=== PATIENT | male | born 1950 | race Caucasian/White ===

== ENCOUNTER → 2016-07-13 | Outpatient (CLI) | payer MEDICARE ==
[~2016-07-13] MED LIST: AMIO200T33; DIGO0.2570; DILT180C53; RANI-226; WARF5TAB71
[2016-07-13 10:09] LABS: Basophils # (auto) 0 uL; Basophils % (auto) 0.6 % (0.0-2.0); DEFINITIVE VIEW TRANSMISSION; Eosinophils # (auto) 0.3 uL; Eosinophils % (auto) 3.7 % (0.0-7.0); Hematocrit 45.3 % (41.0-53.0); Hemoglobin 14.4 g/dL (13.5-17.5); Lymphocytes # (auto) 2.4 uL; Mean Corpuscular Hemoglobin 25.2 pg (28.0-32.0); Mean Corpuscular Hgb Conc. 31.8 g/dL (32.0-36.0); Mean Corpuscular Volume 79.4 fL (80.0-100.0); Mean Platelet Volume 7.9 fL (7.4-10.4); Monocytes # (auto) 0.7 uL; Monocytes % (auto) 9.3 % (0.0-12.0); Neutrophils # (auto) 4.4 uL; Neutrophils % (auto) 55.4 % (37.0-80.0); Platelet Count (auto) 314 10^3/uL (140-450); Red Cell Distribution Width 16.6 % (11.6-16.0); White Blood Cell 7.9 10^3/uL (4.4-10.8)
[2016-07-13 10:19] LABS: Urine Bilirubin Negative (Negative); Urine Color Yellow (Yellow); Urine Glucose Normal (Normal); Urine Ketone Negative (Negative); Urine Mucus MANY (None Seen); Urine Nitrite Negative (Negative); Urine RBC 26 /hpf (0 - 3); Urine Urobilinogen Normal (Negative); Urine WBC Clumps PRESENT /hpf (None Seen)
[2016-07-13 10:22] LABS: Urine Blood 2+ /uL (Negative)
[2016-07-13 10:33] LABS: Albumin 3.7 g/dL (3.4-5.0); BUN/Creatinine Ratio 12.1; Bilirubin, Total 0.4 mg/dL (0.2-1.0); Calcium 8.9 mg/dL (8.5-10.1); Potassium 3.9 mmol/L (3.5-5.1); Total Protein 8.6 g/dL (6.4-8.2); Uric Acid 5.2 mg/dL (3.5-7.2)
== END | disposition home or self-care (01) ==
LOC: LAB 09:15
PROVIDERS: ATTEND Student in an Organized Health Care Education/Training Program
DX: I10 Essential (primary) hypertension (principal); N18.3 Chronic kidney disease, stage 3 (moderate); I50.22 Chronic systolic (congestive) heart failure; F32.5 Major depressive disorder, single episode, in full remission
CPT/HCPCS: 36415; 80053; 80061; 81001; 82306; 83036; 84153; 84439; 84443; 84550; 85025

== ENCOUNTER 2016-11-02 04:19 | Emergency (ER) | payer MEDICARE ==
[~2016-11-02] VITALS: Ht 167.6 cm; Wt 77.1 kg
[~2016-11-02 04:19] MED LIST changes: -AMIO200T33; +AMIO200T33 PO; -DIGO0.2570; +DIGO0.2570 PO; -RANI-226; +RANI-226 PO; -WARF5TAB71; +WARF5TAB71 PO
[2016-11-02 07:33] VITALS: BP 180/93
[2016-11-02] MEDS ORDERED: KETOROLAC TROMETH 60MG/2ML VIAL IM ONE (13:02)
[2016-11-02] MEDS ORDERED: LORazepam 0.5 MG TAB ONE (13:02)
[2016-11-02] MEDS ORDERED: WARF2.5T39 PO (17:40)
[2016-11-03] MEDS ORDERED: DILT180C68 PO (11:02)
== END 2016-11-02 08:09 | disposition home or self-care (01) ==
LOC: ER 04:20
DX: S39.012A Strain of muscle, fascia and tendon of lower back, initial encounter (principal); M54.9 Dorsalgia, unspecified; G89.29 Other chronic pain; I42.9 Cardiomyopathy, unspecified; J44.9 Chronic obstructive pulmonary disease, unspecified; X58.XXXA Exposure to other specified factors, initial encounter; Y93.89 Activity, other specified; Y99.8 Other external cause status; Y92.89 Other specified places as the place of occurrence of the external cause; Z88.8 Allergy status to other drugs, medicaments and biological substances
CPT/HCPCS: J1885

== ENCOUNTER → 2017-02-25 | Outpatient (CLI) | payer MEDICARE ==
[~2017-02-25] MED LIST changes: -AMIO200T33 PO; -DILT180C53; +DILT180C68 PO; +LEVO-28 PO; +TAMS0.4C36 PO
[2017-02-25 16:10] LABS: Urine Bilirubin Negative (Negative); Urine Blood 3+ /uL (Negative); Urine Color Yellow (Yellow); Urine Glucose Normal (Normal); Urine Ketone Negative (Negative); Urine Mucus FEW (None Seen); Urine Nitrite Negative (Negative); Urine RBC 216 /hpf (0 - 3); Urine Squamous Epithelial Cell FEW /hpf (<5); Urine Urobilinogen Normal (Negative); Urine WBC Clumps PRESENT /hpf (None Seen)
== END | disposition home or self-care (01) ==
LOC: LAB 15:25
PROVIDERS: ATTEND Urology
DX: N39.0 Urinary tract infection, site not specified (principal)
CPT/HCPCS: 81001; 87086; 87088; 87186

== ENCOUNTER → 2017-04-09 | Outpatient (CLI) | payer MEDICARE | END | disposition home or self-care (01) | LOC: LAB 10:04 | PROVIDERS: ATTEND Urology | DX: N39.0 Urinary tract infection, site not specified (principal) | CPT/HCPCS: 87086 ==

== ENCOUNTER → 2017-06-22 | Outpatient (CLI) | payer MEDICARE | END | disposition home or self-care (01) | LOC: XYW 10:31 | PROVIDERS: ATTEND Internal Medicine Cardiovascular Disease | DX: I08.3 Combined rheumatic disorders of mitral, aortic and tricuspid valves (principal); I27.20 Pulmonary hypertension, unspecified; I48.91 Unspecified atrial fibrillation | CPT/HCPCS: 93306 ==

== ENCOUNTER 2017-07-01 14:58 | Inpatient (IN) | payer MEDICARE ==
[~2017-07-01] VITALS: Ht 167.6 cm; Wt 70.4 kg
[2017-07-01 15:15] VITALS: BP 133/66
[2017-07-01 16:00] VITALS: BP 133/66
[2017-07-01] MEDS ORDERED: AMIODARONE HCL 150 MG in D5W 5% 100 ML IV ONE (16:30)
[2017-07-01] MEDS ORDERED: NITROGLYCERIN 0.4 MG SL TAB SL PRN (16:30)
[2017-07-01] MEDS ORDERED: MORPHINE SULF INJ 2 MG/ML SYRINGE 1ML IV PRN (16:30)
[2017-07-01] MEDS ORDERED: AMIODARONE HCL 900 MG in DEXTROSE 500 ML IV SCH (16:32)
[2017-07-01] MEDS ORDERED: MORPHINE SULFATE 4 MG/ML SYR/VIAL IV PRN (16:45)
[2017-07-01 17:13] LABS: Basophils # (auto) 0 uL; Eosinophils # (auto) 0 uL; Eosinophils % (auto) 0.4 % (0.0-7.0); Hemoglobin 13.2 g/dL (13.5-17.5); Monocytes # (auto) 0.6 uL; Neutrophils # (auto) 3.8 uL
[2017-07-01 17:14] LABS: Basophils % (auto) 0.6 % (0.0-2.0); Lymphocytes # (auto) 2.2 uL; Lymphocytes % (auto) 32.1 % (10.0-50.0); Mean Corpuscular Hemoglobin 25.5 pg (28.0-32.0); Mean Corpuscular Hgb Conc. 32.3 g/dL (32.0-36.0); Mean Corpuscular Volume 78.8 fL (80.0-100.0); Monocytes % (auto) 9.7 % (0.0-12.0); Neutrophils % (auto) 57.2 % (37.0-80.0); Nucleated Red Blood Cells % 0.8 %; Platelet Count (auto) 242 10^3/uL (140-450); Red Cell Distribution Width 17.3 % (11.8-14.3); White Blood Cell 6.7 10^3/uL (4.4-10.8)
[2017-07-01 17:17] LABS: Alanine Aminotransferase 26 U/L (16-61); Albumin 3.5 g/dL (3.4-5.0); Anion Gap 8 (5-15); BUN/Creatinine Ratio 16.9; Blood Urea Nitrogen 22 mg/dL (7-18); Calcium 8.7 mg/dL (8.5-10.1); Carbon Dioxide 23 mmol/L (21-32); Chloride 107 mmol/L (98-107); GFR African American 71 mL/min; GFR Non-African American 58 mL/min; Glucose 94 mg/dL (74-106); Potassium 4.3 mmol/L (3.5-5.1); Sodium 138 mmol/L (136-145)
[2017-07-01 17:22] LABS: Alkaline Phosphatase 97 U/L (45-117); Aspartate Aminotransferase 17 U/L (15-37); Bilirubin, Total 0.9 mg/dL (0.2-1.0); Total Protein 8.1 g/dL (6.4-8.2)
[2017-07-01 17:24] LABS: INR 2.38 (0.9-1.15); Partial Thromboplastin Time 35.9 sec (22.64-33.71); Prothrombin Time 26.2 sec (9.37-12.3)
[2017-07-01] MEDS: TAMSULOSIN HYDROCHLORIDE 0.4 MG CAP PO SCH (18:10)
[2017-07-01] MEDS ORDERED: DIGOXIN (250MCG/ML) 2 ML AMPULE IV SCH (19:00)
[2017-07-01] MEDS ORDERED: LORazepam 0.5 MG TAB PO ONE (19:15)
[2017-07-01] MEDS ORDERED: WARFARIN SODIUM 2 MG TAB PO ONE (19:30)
[2017-07-01] MEDS ORDERED: CAR3125T PO (19:52)
[2017-07-01 20:00] VITALS: BP 105/61
[2017-07-01] MEDS: DIGOXIN (250MCG/ML) 2 ML AMPULE IV SCH (20:08)
[2017-07-01] MEDS: FAMOTIDINE 20 MG TAB PO SCH (21:58)
[2017-07-02] MEDS: AMIODARONE HCL 900 MG in DEXTROSE 500 ML IV SCH ×2 (00:10→08:50)
[2017-07-02 00:16] VITALS: BP 98/42
[2017-07-02] MEDS: DIGOXIN (250MCG/ML) 2 ML AMPULE IV SCH ×2 (01:14→06:57)
[2017-07-02 02:58] LABS: Urine Bacteria NONE SEEN /hpf (None Seen); Urine Blood 1+ /uL (Negative); Urine Hyaline Cast FEW /lpf (0 - 2); Urine Mucus FEW (None Seen); Urine Specific Gravity 1.023 (1.001-1.035); Urine WBC 16 /hpf (0 - 3)
[2017-07-02 04:27] VITALS: BP 117/83
[2017-07-02 05:57] LABS: INR 2.6 (0.9-1.15); Partial Thromboplastin Time 37.9 sec (22.64-33.71); Prothrombin Time 28.6 sec (9.37-12.3)
[2017-07-02 08:00] VITALS: BP 116/74
[2017-07-02] MEDS ORDERED: METOPROLOL SUCCINATE XL 50 MG TAB PO SCH (09:00)
[2017-07-02] MEDS ORDERED: DIGOXIN (250MCG/ML) 2 ML AMPULE IV ONE (09:00)
[2017-07-02] MEDS: FAMOTIDINE 20 MG TAB PO SCH ×2 (09:03→22:04)
[2017-07-02] MEDS ORDERED: FUROSEMIDE 40 MG/4 ML VIAL IV ONE (10:45)
[2017-07-02 11:50] VITALS: BP 124/77
[2017-07-02] MEDS ORDERED: POTASSIUM CHL 20 Meq TABLET PO ONE (12:00)
[2017-07-02 13:00] VITALS: BP 117/90
[2017-07-02] MEDS ORDERED: WARFARIN SODIUM 2.5 MG TAB PO ONE (17:00)
[2017-07-02] MEDS: TAMSULOSIN HYDROCHLORIDE 0.4 MG CAP PO SCH (18:12)
[2017-07-02] MEDS: METOPROLOL SUCCINATE XL 50 MG TAB PO SCH ×2 (20:49→22:05)
[2017-07-02 22:03] VITALS: BP 113/62
[2017-07-03 05:16] VITALS: BP 127/73
[2017-07-03 06:34] LABS: Albumin 3.1 g/dL (3.4-5.0); BUN/Creatinine Ratio 18.2; Calcium 8.5 mg/dL (8.5-10.1); Total Protein 7.6 g/dL (6.4-8.2)
[2017-07-03 06:36] LABS: INR 3.02 (0.9-1.15); Partial Thromboplastin Time 39.4 sec (22.64-33.71); Prothrombin Time 33.3 sec (9.37-12.3)
[2017-07-03 08:30] VITALS: BP 120/77
[2017-07-03] MEDS: FAMOTIDINE 20 MG TAB PO SCH (08:58)
[2017-07-03] MEDS: METOPROLOL SUCCINATE XL 50 MG TAB PO SCH (08:58)
[2017-07-03] MEDS: DIGOXIN 0.125 MG TAB PO SCH ×2 (08:59→10:00)
[2017-07-03] MEDS ORDERED: METOPROLOL TARTRATE 25 MG TAB PO ONE (09:15)
[2017-07-03 12:24] VITALS: BP 105/75
[2017-07-03] MEDS ORDERED: TAM04C PO (13:53)
[2017-07-03] MEDS ORDERED: WARPRX PO (13:53)
[2017-07-03] MEDS ORDERED: DIGO0.124 PO (13:53)
[2017-07-03] MEDS ORDERED: METO50TA7 PO (13:53)
[2017-07-03 15:07] VITALS: BP 118/78
[2017-07-03] MEDS ORDERED: METOPROLOL SUCCINATE XL 50 MG TAB PO SCH (20:00)
== END 2017-07-03 16:00 | disposition home or self-care (01) | DRG 308 ==
LOC: ICU CENTRL 14:58 → DOU IN ICU 15:34 → CENTRAL 07-02 12:15 → TELE-CENTR 07-02 13:24
PROVIDERS: ADMIT Family Medicine; ATTEND Internal Medicine
DX: I48.2 Chronic atrial fibrillation (principal); I50.31 Acute diastolic (congestive) heart failure; D68.69 Other thrombophilia; Z79.01 Long term (current) use of anticoagulants; I11.0 Hypertensive heart disease with heart failure; N40.0 Benign prostatic hyperplasia without lower urinary tract symptoms; Z86.711 Personal history of pulmonary embolism; Z86.718 Personal history of other venous thrombosis and embolism
CPT/HCPCS: 36415; 71010; 80053; 81001; 83880; 84484; 85025; 85610; 85730; 87081; J7060

== ENCOUNTER 2017-07-24 09:28 | Inpatient (IN) | payer MEDICARE ==
[~2017-07-24] VITALS: Ht 167.6 cm; Wt 79.8 kg
[~2017-07-24 09:28] MED LIST changes: +CAR3125T PO; +DIGO0.124 PO; -DIGO0.2570 PO; -DILT180C68 PO; -LEVO-28 PO; +METO50TA7 PO; +TAM04C PO; -TAMS0.4C36 PO; +WARPRX PO
[2017-07-24 10:16] LABS: Basophils # (auto) 0.1 uL; Basophils % (auto) 0.9 % (0.0-2.0); Eosinophils # (auto) 0.2 uL; Hemoglobin 12.7 g/dL (13.5-17.5); Mean Corpuscular Hgb Conc. 31.8 g/dL (32.0-36.0); Monocytes # (auto) 0.4 uL
[2017-07-24 10:18] LABS: Eosinophils % (auto) 1.8 % (0.0-7.0); Hematocrit 39.8 % (41.0-53.0); Lymphocytes # (auto) 2.1 uL; Lymphocytes % (auto) 25.2 % (10.0-50.0); Mean Corpuscular Volume 78.6 fL (80.0-100.0); Monocytes % (auto) 4.5 % (0.0-12.0); Neutrophils # (auto) 5.5 uL; Neutrophils % (auto) 67.6 % (37.0-80.0); Platelet Count (auto) 267 10^3/uL (140-450); Red Blood Cells 5.07 10^6/uL (4.5-5.90); Red Cell Distribution Width 18.5 % (11.8-14.3); White Blood Cell 8.1 10^3/uL (4.4-10.8)
[2017-07-24 10:39] LABS: Lactic Acid w/Reflex 2.2 mmol/L (0.4-2.0)
[2017-07-24 10:42] LABS: Alanine Aminotransferase 24 U/L (16-61); Albumin 3.6 g/dL (3.4-5.0); Alkaline Phosphatase 85 U/L (45-117); Anion Gap 11 (5-15); Aspartate Aminotransferase 16 U/L (15-37); BUN/Creatinine Ratio 15.9; Bilirubin, Total 0.5 mg/dL (0.2-1.0); Blood Urea Nitrogen 23 mg/dL (7-18); Calcium 8.8 mg/dL (8.5-10.1); Carbon Dioxide 23 mmol/L (21-32); Chloride 107 mmol/L (98-107); GFR African American 62 mL/min; GFR Non-African American 51 mL/min; Glucose 137 mg/dL (74-106); Magnesium 2.3 mg/dL (1.6-2.6); Potassium 4.8 mmol/L (3.5-5.1); Sodium 141 mmol/L (136-145); Total Protein 7.9 g/dL (6.4-8.2)
[2017-07-24 11:02] LABS: INR 3.01 (0.9-1.15); Prothrombin Time 33.2 sec (9.37-12.3)
[2017-07-24] MEDS ORDERED: ACETAMINOPHEN 325 MG TAB PO PRN (14:30)
[2017-07-24] MEDS ORDERED: ONDANSETRON HCL 4 MG/2 ML VIAL IV PRN (14:30)
[2017-07-24] MEDS ORDERED: DIGOXIN 0.125 MG TAB PO ONE (14:30)
[2017-07-24] MEDS ORDERED: HYDROcodone-ACET 5/325MG TAB PO PRN (14:30)
[2017-07-24] MEDS ORDERED: cefTRIAXone 1GM/10ml IVPUSH 10 ML IV ONE (14:30)
[2017-07-24] MEDS ORDERED: TEMAZEPAM 15 MG CAP PO PRN (14:30)
[2017-07-24] MEDS ORDERED: NITROGLYCERIN 0.4 MG SL TAB SL PRN (14:30)
[2017-07-24] MEDS ORDERED: MORPHINE SULFATE 10 MG/ML INJ 1ML SDV IV PRN ×2 (14:30)
[2017-07-24] MEDS ORDERED: PHYTONADIONE (VIT K)10 MG/ML 1ML VIAL SUBCUT ONE (14:30)
[2017-07-24] MEDS ORDERED: DOCUSATE SOD 100 MG CAP PO PRN (14:30)
[2017-07-24] MEDS ORDERED: DEXTROSE (50%) 50ML SYRG IV PRN (14:45)
[2017-07-24] MEDS ORDERED: VANCOMYCIN PER PHARMACY 0 MG IV SCH (14:45)
[2017-07-24] MEDS: FAMOTIDINE 20 MG TAB PO SCH ×2 (15:30→22:00)
[2017-07-24] MEDS ORDERED: VANCOMYCIN 1,250 MG in D5W 5% 250 ML IV ONE (16:30)
[2017-07-24] MEDS: ACCU-CHEK COMFORT CURVE STRIP VI SCH ×2 (16:34→22:00)
[2017-07-24] MEDS: InsuLIN REG 1unit/0.01ml Soln (100units/ml) SC SCH ×2 (16:36→22:00)
[2017-07-24] MEDS ORDERED: CARV6.2551 PO (17:20)
[2017-07-24] MEDS ORDERED: HYDR-4683 PO (17:20)
[2017-07-24] MEDS: TAMSULOSIN HYDROCHLORIDE 0.4 MG CAP PO SCH (18:11)
[2017-07-24] MEDS: METOPROLOL SUCCINATE XL 50 MG TAB PO SCH (21:38)
[2017-07-24] MEDS: SODIUM CHLOR 0.9% PF (SALINE LOCK) 10ML VIAL IV SCH (21:38)
[2017-07-24] MEDS ORDERED: CARVEDILOL 3.125 MG TAB PO SCH (22:00)
[2017-07-25] MEDS: SODIUM CHLOR 0.9% PF (SALINE LOCK) 10ML VIAL IV SCH ×3 (05:02→22:03)
[2017-07-25] MEDS: SODIUM CHLORIDE 0.9% 1,000 ML IV SCH ×3 (05:43→22:02)
[2017-07-25] MEDS ORDERED: SODIUM CHLORIDE 0.9% 1,000 ML IV ONE (05:45)
[2017-07-25] MEDS: InsuLIN REG 1unit/0.01ml Soln (100units/ml) SC SCH ×4 (07:00→22:00)
[2017-07-25] MEDS: ACCU-CHEK COMFORT CURVE STRIP VI SCH ×4 (07:00→22:03)
[2017-07-25 07:34] LABS: Basophils # (auto) 0 uL; Eosinophils # (auto) 0.1 uL; Hemoglobin 9.3 g/dL (13.5-17.5); Mean Corpuscular Hemoglobin 25.6 pg (28.0-32.0); White Blood Cell 8.6 10^3/uL (4.4-10.8)
[2017-07-25 07:36] LABS: Basophils % (auto) 0.3 % (0.0-2.0); Eosinophils % (auto) 1.6 % (0.0-7.0); Hematocrit 28.4 % (41.0-53.0); Lymphocytes # (auto) 2.5 uL; Lymphocytes % (auto) 28.8 % (10.0-50.0); Mean Corpuscular Hgb Conc. 32.7 g/dL (32.0-36.0); Mean Corpuscular Volume 78.1 fL (80.0-100.0); Monocytes # (auto) 0.8 uL; Monocytes % (auto) 9.6 % (0.0-12.0); Neutrophils # (auto) 5.1 uL; Neutrophils % (auto) 59.7 % (37.0-80.0); Platelet Count (auto) 166 10^3/uL (140-450); Red Blood Cells 3.64 10^6/uL (4.5-5.90); Red Cell Distribution Width 18.3 % (11.8-14.3)
[2017-07-25 07:47] LABS: INR 1.27 (0.9-1.15); Prothrombin Time 13.9 sec (9.37-12.3)
[2017-07-25 07:57] LABS: Albumin 2.7 g/dL (3.4-5.0); Calcium 8.3 mg/dL (8.5-10.1); Potassium 3.9 mmol/L (3.5-5.1)
[2017-07-25 08:09] LABS: Bilirubin, Total 0.6 mg/dL (0.2-1.0); Total Protein 5.9 g/dL (6.4-8.2)
[2017-07-25] MEDS: cefTRIAXone 1GM/10ml IVPUSH 10 ML IV SCH (08:55)
[2017-07-25] MEDS: METOPROLOL SUCCINATE XL 50 MG TAB PO SCH ×2 (10:00→22:03)
[2017-07-25] MEDS: MULTIPLE VITAMIN TAB PO SCH (10:12)
[2017-07-25] MEDS: DIGOXIN 0.125 MG TAB PO SCH (10:12)
[2017-07-25] MEDS: FAMOTIDINE 20 MG TAB PO SCH ×2 (10:12→22:03)
[2017-07-25] MEDS: VANCOMYCIN 1GM/250ML 250 ML IV SCH (16:50)
[2017-07-25] MEDS: TAMSULOSIN HYDROCHLORIDE 0.4 MG CAP PO SCH (18:06)
[2017-07-25 18:15] LABS: Urine Bacteria None Seen /hpf (None Seen)
[2017-07-25 18:49] LABS: Urine WBC 12 /hpf (0 - 3)
[2017-07-25 21:29] VITALS: BP 113/56
[2017-07-26 05:10] VITALS: BP 100/68
[2017-07-26] MEDS: InsuLIN REG 1unit/0.01ml Soln (100units/ml) SC SCH ×2 (06:32→11:30)
[2017-07-26] MEDS: ACCU-CHEK COMFORT CURVE STRIP VI SCH ×2 (06:32→11:30)
[2017-07-26] MEDS: SODIUM CHLOR 0.9% PF (SALINE LOCK) 10ML VIAL IV SCH ×3 (06:32→21:44)
[2017-07-26] MEDS: SODIUM CHLORIDE 0.9% 1,000 ML IV SCH ×3 (06:32→23:18)
[2017-07-26 09:22] VITALS: BP 100/60
[2017-07-26] MEDS: cefTRIAXone 1GM/10ml IVPUSH 10 ML IV SCH (10:06)
[2017-07-26] MEDS: FAMOTIDINE 20 MG TAB PO SCH ×2 (10:07→21:44)
[2017-07-26] MEDS: METOPROLOL SUCCINATE XL 50 MG TAB PO SCH ×2 (10:07→21:45)
[2017-07-26] MEDS: DIGOXIN 0.125 MG TAB PO SCH (10:08)
[2017-07-26] MEDS: MULTIPLE VITAMIN TAB PO SCH (10:08)
[2017-07-26 12:30] VITALS: BP 115/75
[2017-07-26 16:41] VITALS: BP 98/79
[2017-07-26] MEDS: VANCOMYCIN 1GM/250ML 250 ML IV SCH (16:45)
[2017-07-26 18:00] VITALS: BP 114/78
[2017-07-26] MEDS: TAMSULOSIN HYDROCHLORIDE 0.4 MG CAP PO SCH (18:37)
[2017-07-26 22:44] VITALS: BP 114/78
[2017-07-27 05:23] VITALS: BP 94/55
[2017-07-27] MEDS: SODIUM CHLOR 0.9% PF (SALINE LOCK) 10ML VIAL IV SCH ×3 (05:46→22:05)
[2017-07-27] MEDS: SODIUM CHLORIDE 0.9% 1,000 ML IV SCH ×3 (06:37→21:45)
[2017-07-27 08:00] VITALS: BP 123/66
[2017-07-27 09:38] LABS: Basophils # (auto) 0 uL; Eosinophils # (auto) 0.3 uL; Eosinophils % (auto) 5.2 % (0.0-7.0); Hemoglobin 8.6 g/dL (13.5-17.5); Lymphocytes # (auto) 1.5 uL; Monocytes # (auto) 0.5 uL; Nucleated Red Blood Cells % 0.1 %; White Blood Cell 4.9 10^3/uL (4.4-10.8)
[2017-07-27 09:42] LABS: Basophils % (auto) 0.7 % (0.0-2.0); Hematocrit 26.5 % (41.0-53.0); Lymphocytes % (auto) 29.7 % (10.0-50.0); Mean Corpuscular Hemoglobin 25.9 pg (28.0-32.0); Mean Corpuscular Hgb Conc. 32.6 g/dL (32.0-36.0); Mean Corpuscular Volume 79.3 fL (80.0-100.0); Monocytes % (auto) 10.5 % (0.0-12.0); Neutrophils # (auto) 2.6 uL; Neutrophils % (auto) 53.9 % (37.0-80.0); Platelet Count (auto) 154 10^3/uL (140-450); Red Blood Cells 3.34 10^6/uL (4.5-5.90); Red Cell Distribution Width 18.5 % (11.8-14.3)
[2017-07-27 09:52] LABS: Albumin 2.7 g/dL (3.4-5.0); Calcium 8.6 mg/dL (8.5-10.1); Potassium 4.1 mmol/L (3.5-5.1)
[2017-07-27 09:55] LABS: Bilirubin, Total 0.6 mg/dL (0.2-1.0); Total Protein 6.1 g/dL (6.4-8.2)
[2017-07-27 09:59] VITALS: BP 123/66
[2017-07-27] MEDS: DIGOXIN 0.125 MG TAB PO SCH (11:25)
[2017-07-27] MEDS: METOPROLOL SUCCINATE XL 50 MG TAB PO SCH ×2 (11:25→22:06)
[2017-07-27] MEDS: cefTRIAXone 1GM/10ml IVPUSH 10 ML IV SCH (11:25)
[2017-07-27] MEDS: MULTIPLE VITAMIN TAB PO SCH (11:26)
[2017-07-27] MEDS: FAMOTIDINE 20 MG TAB PO SCH ×2 (11:26→22:05)
[2017-07-27] MEDS ORDERED: LIDOCAINE 2% JELLY 11ml (GLYDO) ONE (11:42)
[2017-07-27 12:22] VITALS: BP 121/70
[2017-07-27] MEDS: VANCOMYCIN 1GM/250ML 250 ML IV SCH (15:18)
[2017-07-27 17:17] VITALS: BP 108/73
[2017-07-27] MEDS: TAMSULOSIN HYDROCHLORIDE 0.4 MG CAP PO SCH (17:24)
[2017-07-27 22:42] VITALS: BP 90/66
[2017-07-28] MEDS: SODIUM CHLORIDE 0.9% 1,000 ML IV SCH ×3 (02:52→22:08)
[2017-07-28] MEDS ORDERED: VANCOMYCIN 1GM/250ML 250 ML IV SCH (04:00)
[2017-07-28 05:29] VITALS: BP 112/73
[2017-07-28] MEDS: SODIUM CHLOR 0.9% PF (SALINE LOCK) 10ML VIAL IV SCH ×3 (06:12→22:06)
[2017-07-28 08:00] VITALS: BP 120/77
[2017-07-28 08:34] LABS: Eosinophils # (auto) 0.3 uL; Eosinophils % (auto) 4.7 % (0.0-7.0); Hematocrit 27.6 % (41.0-53.0); Monocytes # (auto) 0.6 uL; Red Cell Distribution Width 18.6 % (11.8-14.3); White Blood Cell 6.5 10^3/uL (4.4-10.8)
[2017-07-28 08:37] LABS: Basophils # (auto) 0 uL; Basophils % (auto) 0.6 % (0.0-2.0); Lymphocytes # (auto) 1.9 uL; Lymphocytes % (auto) 28.9 % (10.0-50.0); Mean Corpuscular Hemoglobin 25.7 pg (28.0-32.0); Mean Corpuscular Hgb Conc. 32.6 g/dL (32.0-36.0); Mean Corpuscular Volume 79.1 fL (80.0-100.0); Monocytes % (auto) 9.7 % (0.0-12.0); Neutrophils # (auto) 3.6 uL; Neutrophils % (auto) 56.1 % (37.0-80.0); Platelet Count (auto) 182 10^3/uL (140-450); Red Blood Cells 3.49 10^6/uL (4.5-5.90)
[2017-07-28 08:47] LABS: BUN/Creatinine Ratio 13.7; Calcium 8.2 mg/dL (8.5-10.1); Potassium 4.4 mmol/L (3.5-5.1)
[2017-07-28 09:00] VITALS: BP 120/77
[2017-07-28] MEDS: MULTIPLE VITAMIN TAB PO SCH (10:46)
[2017-07-28] MEDS: METOPROLOL SUCCINATE XL 50 MG TAB PO SCH ×2 (10:47→22:07)
[2017-07-28] MEDS: cefTRIAXone 1GM/10ml IVPUSH 10 ML IV SCH (10:47)
[2017-07-28] MEDS: FAMOTIDINE 20 MG TAB PO SCH ×2 (10:47→22:07)
[2017-07-28] MEDS: DIGOXIN 0.125 MG TAB PO SCH (10:48)
[2017-07-28 13:00] VITALS: BP 92/57
[2017-07-28] MEDS ORDERED: VANCOMYCIN 1,250 MG in D5W 5% 250 ML IV SCH (14:00)
[2017-07-28 17:00] VITALS: BP 110/69
[2017-07-28] MEDS: TAMSULOSIN HYDROCHLORIDE 0.4 MG CAP PO SCH (18:02)
[2017-07-28 22:19] VITALS: BP 98/58
[2017-07-29 05:21] VITALS: BP 114/77
[2017-07-29] MEDS: SODIUM CHLORIDE 0.9% 1,000 ML IV SCH ×3 (05:45→21:45)
[2017-07-29] MEDS: SODIUM CHLOR 0.9% PF (SALINE LOCK) 10ML VIAL IV SCH ×3 (06:00→22:00)
[2017-07-29] MEDS ORDERED: LIDOCAINE 2% JELLY 11ml (GLYDO) ONE (06:55)
[2017-07-29] MEDS ORDERED: IOHEXOL 300 MG/ML 100ML BOTTLE IJ ONE (06:55)
[2017-07-29] MEDS ORDERED: PROPOFOL 10 MG/ML 20 ML IV ONE (07:12)
[2017-07-29] MEDS ORDERED: ONDANSETRON HCL 4 MG/2 ML VIAL ONE (07:12)
[2017-07-29] MEDS ORDERED: ceFAZolin 1GM/50ML 50 ML IV ONE (07:12)
[2017-07-29] MEDS ORDERED: MIDAZOLAM HCL 1MG/1ML-2 ML VIAL ONE (07:12)
[2017-07-29] MEDS ORDERED: fentaNYL CITRATE 100 MCG/2 ML VL ONE (07:12)
[2017-07-29] MEDS ORDERED: SODIUM CHLORIDE LOCK 10 ML ONE (07:12)
[2017-07-29] MEDS ORDERED: SUCCINYLCHOLINE CHLORIDE 20 MG/ML 10ML VIAL IV ONE (07:21)
[2017-07-29] MEDS ORDERED: ROCURONIUM 10MG/ML 10ML VIAL IV ONE (07:57)
[2017-07-29] MEDS ORDERED: NEOSTIGMINE 1 MG/ML INJ (10mg/10ML VIAL) ONE (07:57)
[2017-07-29] MEDS ORDERED: GLYCOPYRROLATE 0.2 MG/ML 1ML VIAL ONE (07:57)
[2017-07-29 08:00] VITALS: BP 113/80
[2017-07-29 08:10] VITALS: BP 114/62
[2017-07-29 08:15] LABS: Eosinophils # (auto) 0.3 uL; Hemoglobin 9.5 g/dL (13.5-17.5); Lymphocytes # (auto) 1.8 uL; Monocytes # (auto) 0.6 uL; Nucleated Red Blood Cells % 0.1 %
[2017-07-29 08:18] LABS: Basophils # (auto) 0 uL; Basophils % (auto) 0.8 % (0.0-2.0); Eosinophils % (auto) 5.8 % (0.0-7.0); Lymphocytes % (auto) 31.4 % (10.0-50.0); Mean Corpuscular Hgb Conc. 32.8 g/dL (32.0-36.0); Mean Corpuscular Volume 79.3 fL (80.0-100.0); Monocytes % (auto) 10.1 % (0.0-12.0); Neutrophils # (auto) 2.9 uL; Neutrophils % (auto) 51.9 % (37.0-80.0); Platelet Count (auto) 208 10^3/uL (140-450); Red Blood Cells 3.66 10^6/uL (4.5-5.90); Red Cell Distribution Width 19.1 % (11.8-14.3); White Blood Cell 5.7 10^3/uL (4.4-10.8)
[2017-07-29] MEDS ORDERED: METOCLOPRAMIDE HCL 5MG/ml INJ 2ml VIAL IV ONE (08:30)
[2017-07-29] MEDS ORDERED: HYDROmorphone HCL 2 MG/ML VL IV PRN (08:30)
[2017-07-29 08:40] LABS: BUN/Creatinine Ratio 13.2; Bilirubin, Total 0.5 mg/dL (0.2-1.0); Calcium 8.5 mg/dL (8.5-10.1); Potassium 3.9 mmol/L (3.5-5.1); Total Protein 6.9 g/dL (6.4-8.2)
[2017-07-29] MEDS: cefTRIAXone 1GM/10ml IVPUSH 10 ML IV SCH (09:00)
[2017-07-29] MEDS: FAMOTIDINE 20 MG TAB PO SCH ×2 (11:01→23:12)
[2017-07-29] MEDS: MULTIPLE VITAMIN TAB PO SCH (11:04)
[2017-07-29] MEDS: METOPROLOL SUCCINATE XL 50 MG TAB PO SCH ×2 (11:14→23:13)
[2017-07-29] MEDS: DIGOXIN 0.125 MG TAB PO SCH (11:14)
[2017-07-29 13:00] VITALS: BP 76/51
[2017-07-29 17:00] VITALS: BP 98/59
[2017-07-29] MEDS: TAMSULOSIN HYDROCHLORIDE 0.4 MG CAP PO SCH (19:38)
[2017-07-29 21:41] VITALS: BP 106/58
[2017-07-30] MEDS: SODIUM CHLOR 0.9% PF (SALINE LOCK) 10ML VIAL IV SCH ×2 (05:45→14:34)
[2017-07-30] MEDS: SODIUM CHLORIDE 0.9% 1,000 ML IV SCH ×2 (05:45→14:33)
[2017-07-30 06:01] VITALS: BP 99/66
[2017-07-30 07:11] LABS: Albumin 2.7 g/dL (3.4-5.0); BUN/Creatinine Ratio 12.6; Bilirubin, Total 0.4 mg/dL (0.2-1.0); Calcium 8.1 mg/dL (8.5-10.1); Total Protein 6.3 g/dL (6.4-8.2)
[2017-07-30 08:00] VITALS: BP 104/68
[2017-07-30 08:39] VITALS: BP 104/68
[2017-07-30] MEDS: cefTRIAXone 1GM/10ml IVPUSH 10 ML IV SCH (09:02)
[2017-07-30] MEDS: MULTIPLE VITAMIN TAB PO SCH (10:19)
[2017-07-30] MEDS: DIGOXIN 0.125 MG TAB PO SCH (10:19)
[2017-07-30] MEDS: FAMOTIDINE 20 MG TAB PO SCH (10:19)
[2017-07-30] MEDS: METOPROLOL SUCCINATE XL 50 MG TAB PO SCH (10:20)
[2017-07-30 13:00] VITALS: BP_SYST 116; BP_SYST 125; BP_DIAS 76; BP_DIAS 88
[2017-07-30] MEDS: TAMSULOSIN HYDROCHLORIDE 0.4 MG CAP PO SCH (14:33)
[2017-07-30 17:03] VITALS: BP 116/76
[2017-07-30 17:50] VITALS: BP 116/76
== END 2017-07-30 17:50 | disposition home or self-care (01) | DRG 696 ==
LOC: ER 09:28 → TELE 09:29 → TELE-CENTR 07-25 17:51
PROVIDERS: ADMIT Internal Medicine; ATTEND Family Medicine
PROC: 0TCB8ZZ Extirpation of Matter from Bladder, Via Natural or Artificial Opening Endoscopic (ICD-10-PCS; principal; 2017-07-29 07:21)
DX: R31.0 Gross hematuria (principal); N17.9 Acute kidney failure, unspecified; D68.59 Other primary thrombophilia; E11.21 Type 2 diabetes mellitus with diabetic nephropathy; E11.22 Type 2 diabetes mellitus with diabetic chronic kidney disease; N18.3 Chronic kidney disease, stage 3 (moderate); E11.65 Type 2 diabetes mellitus with hyperglycemia; I48.0 Paroxysmal atrial fibrillation; I48.92 Unspecified atrial flutter; M48.54XA Collapsed vertebra, not elsewhere classified, thoracic region, initial encounter for fracture; N32.89 Other specified disorders of bladder; N28.1 Cyst of kidney, acquired; K21.9 Gastro-esophageal reflux disease without esophagitis; T45.515A Adverse effect of anticoagulants, initial encounter; I13.10 Hypertensive heart and chronic kidney disease without heart failure, with stage 1 through stage 4 chronic kidney disease, or unspecified chronic kidney disease; K74.60 Unspecified cirrhosis of liver; Z96.0 Presence of urogenital implants; G47.00 Insomnia, unspecified; K59.00 Constipation, unspecified; D50.0 Iron deficiency anemia secondary to blood loss (chronic); Z71.3 Dietary counseling and surveillance; Z79.01 Long term (current) use of anticoagulants; Z86.711 Personal history of pulmonary embolism; Z86.718 Personal history of other venous thrombosis and embolism; Z87.442 Personal history of urinary calculi; Z88.8 Allergy status to other drugs, medicaments and biological substances; Z79.899 Other long term (current) drug therapy
CPT/HCPCS: 36415; 70450; 71045; 74018; 74176; 76775; 80048; 80053; 80202; 81001; 82962; 83036; 83605; 83735; 83880; 84443; 84484; 85025; 85610; 86850; 86900; 86901; 87040; 87081; 87086; 93005; 94002; 96372; 96374; 96375; J0330; J0690; J2250; J2405; J2704; J3430; J7060

== ENCOUNTER → 2017-09-10 | Outpatient (CLI) | payer MEDICARE ==
[~2017-09-10] MED LIST changes: -CAR3125T PO; +CARV6.2551 PO; +HYDR-4683 PO
[2017-09-10 09:47] LABS: Basophils # (auto) 0.1 uL; Eosinophils # (auto) 0.2 uL; Hemoglobin 8.5 g/dL (13.5-17.5); Monocytes # (auto) 0.5 uL; Nucleated Red Blood Cells % 0.2 %
[2017-09-10 09:48] LABS: Basophils % (auto) 1.6 % (0.0-2.0); Eosinophils % (auto) 4.4 % (0.0-7.0); Lymphocytes # (auto) 1.3 uL; Lymphocytes % (auto) 27.8 % (10.0-50.0); Mean Corpuscular Hemoglobin 21.6 pg (28.0-32.0); Mean Corpuscular Hgb Conc. 30.4 g/dL (32.0-36.0); Mean Corpuscular Volume 71.1 fL (80.0-100.0); Monocytes % (auto) 10.2 % (0.0-12.0); Neutrophils # (auto) 2.7 uL; Platelet Count (auto) 341 10^3/uL (140-450); Red Blood Cells 3.94 10^6/uL (4.5-5.90); Red Cell Distribution Width 19.6 % (11.8-14.3); White Blood Cell 4.8 10^3/uL (4.4-10.8)
[2017-09-10 09:55] LABS: Urine Bacteria NONE SEEN /hpf (None Seen); Urine Blood 3+ /uL (Negative); Urine Hyaline Cast FEW /lpf (0 - 2); Urine Specific Gravity 1.018 (1.001-1.035); Urine WBC 8 /hpf (0 - 3)
[2017-09-10 09:59] LABS: INR 1.11 (0.9-1.15); Partial Thromboplastin Time 28.4 sec (22.64-33.71); Prothrombin Time 12.1 sec (9.37-12.3)
[2017-09-10 10:34] LABS: Prostate Specific Antigen 0.85 ng/mL (0.0-4.0)
[2017-09-10 12:09] LABS: BUN/Creatinine Ratio 17.1; Calcium 8.8 mg/dL (8.5-10.1); Potassium 3.9 mmol/L (3.5-5.1)
== END | disposition home or self-care (01) ==
LOC: LAB 09:16
PROVIDERS: ATTEND Family Medicine
DX: I10 Essential (primary) hypertension (principal); I82.442 Acute embolism and thrombosis of left tibial vein; I26.99 Other pulmonary embolism without acute cor pulmonale; I48.91 Unspecified atrial fibrillation; K21.9 Gastro-esophageal reflux disease without esophagitis; Z79.899 Other long term (current) drug therapy; R97.21 Rising PSA following treatment for malignant neoplasm of prostate
CPT/HCPCS: 36415; 80048; 80061; 81001; 82306; 82607; 84153; 84443; 85025; 85610; 85730

== ENCOUNTER → 2017-11-11 | Outpatient (CLI) | payer MEDICARE | END | disposition home or self-care (01) | LOC: LAB 09:11 | PROVIDERS: ATTEND Urology | DX: N20.0 Calculus of kidney (principal); N40.0 Benign prostatic hyperplasia without lower urinary tract symptoms; K21.9 Gastro-esophageal reflux disease without esophagitis; I12.9 Hypertensive chronic kidney disease with stage 1 through stage 4 chronic kidney disease, or unspecified chronic kidney disease; E11.22 Type 2 diabetes mellitus with diabetic chronic kidney disease; N18.3 Chronic kidney disease, stage 3 (moderate); Z79.01 Long term (current) use of anticoagulants; Z79.899 Other long term (current) drug therapy | CPT/HCPCS: 84153 ==

== ENCOUNTER → 2018-02-07 | Outpatient (CLI) | payer MEDICARE ==
[~2018-02-07] MED LIST changes: +DIGO0.1229 PO; -DIGO0.124 PO; +MET5XLT PO; -METO50TA7 PO
[2018-02-07 10:23] LABS: Basophils # (auto) 0.1 uL; Basophils % (auto) 1.5 % (0.0-2.0); Eosinophils # (auto) 0.3 uL; Eosinophils % (auto) 4.9 % (0.0-7.0); Hematocrit 45.6 % (41.0-53.0); Hemoglobin 15.4 g/dL (13.5-17.5); Lymphocytes # (auto) 1.4 uL; Lymphocytes % (auto) 26.4 % (10.0-50.0); Mean Corpuscular Hemoglobin 29.3 pg (28.0-32.0); Mean Corpuscular Hgb Conc. 33.7 g/dL (32.0-36.0); Mean Corpuscular Volume 87.1 fL (80.0-100.0); Monocytes # (auto) 0.3 uL; Monocytes % (auto) 5.3 % (0.0-12.0); Neutrophils # (auto) 3.4 uL; Neutrophils % (auto) 61.9 % (37.0-80.0); Nucleated Red Blood Cells % 0.1 %; Platelet Count (auto) 171 10^3/uL (140-450); Red Blood Cells 5.24 10^6/uL (4.5-5.90); Red Cell Distribution Width 17.8 % (11.8-14.3); White Blood Cell 5.5 10^3/uL (4.4-10.8)
[2018-02-07 11:15] LABS: BUN/Creatinine Ratio 9.5; Calcium 8.8 mg/dL (8.5-10.1); Potassium 4.3 mmol/L (3.5-5.1)
== END | disposition home or self-care (01) ==
LOC: LAB 09:53
PROVIDERS: ATTEND Internal Medicine Cardiovascular Disease
DX: I10 Essential (primary) hypertension (principal); D50.0 Iron deficiency anemia secondary to blood loss (chronic); K21.9 Gastro-esophageal reflux disease without esophagitis; Z79.01 Long term (current) use of anticoagulants; Z79.899 Other long term (current) drug therapy
CPT/HCPCS: 36415; 80048; 85025

== ENCOUNTER → 2018-02-10 | Outpatient (CLI) | payer MEDICARE | END | disposition home or self-care (01) | LOC: XYW 08:39 | PROVIDERS: ATTEND Internal Medicine Cardiovascular Disease | DX: I08.3 Combined rheumatic disorders of mitral, aortic and tricuspid valves (principal); I10 Essential (primary) hypertension; Z79.01 Long term (current) use of anticoagulants; Z79.899 Other long term (current) drug therapy | CPT/HCPCS: 93306 ==

== ENCOUNTER → 2019-01-11 | Outpatient (CLI) | payer MEDICARE | END | disposition home or self-care (01) | LOC: XYW 07:27 | PROVIDERS: ATTEND Internal Medicine | DX: I08.3 Combined rheumatic disorders of mitral, aortic and tricuspid valves (principal); I11.0 Hypertensive heart disease with heart failure; I50.9 Heart failure, unspecified; I48.91 Unspecified atrial fibrillation | CPT/HCPCS: 93306 ==

== ENCOUNTER → 2019-02-09 | Outpatient (CLI) | payer MEDICARE ==
[~2019-02-09] VITALS: Ht 30.5 cm; Wt 0.5 kg
[~2019-02-09] MED LIST changes: +ADENOSINE 63 MG in GIVE UN-DILUTED 0 ML IV ONE; -DIGO0.1229 PO; +DIGO0.1238 PO; -HYDR-4683 PO; +HYDR-4833 PO; -MET5XLT PO; +METO-6 PO
== END | disposition home or self-care (01) ==
LOC: XY 07:08
PROVIDERS: ATTEND Internal Medicine
DX: I11.0 Hypertensive heart disease with heart failure (principal); I50.9 Heart failure, unspecified
CPT/HCPCS: 78452; 93017; A9500; J0153

== ENCOUNTER → 2019-02-14 | Outpatient (CLI) | payer MEDICARE ==
[~2019-02-14] MED LIST changes: -ADENOSINE 63 MG in GIVE UN-DILUTED 0 ML IV ONE
[2019-02-14 09:58] LABS: Basophils # (auto) 0.1 uL; Basophils % (auto) 1.2 % (0.0-2.0); Eosinophils # (auto) 0.2 uL; Eosinophils % (auto) 4.3 % (0.0-7.0); Hematocrit 46.8 % (41.0-53.0); Hemoglobin 15.8 g/dL (13.5-17.5); Lymphocytes # (auto) 1.9 uL; Lymphocytes % (auto) 34.2 % (10.0-50.0); Mean Corpuscular Hemoglobin 30.7 pg (28.0-32.0); Mean Corpuscular Hgb Conc. 33.8 g/dL (32.0-36.0); Mean Corpuscular Volume 90.9 fL (80.0-100.0); Monocytes # (auto) 0.4 uL; Monocytes % (auto) 7.2 % (0.0-12.0); Neutrophils # (auto) 2.9 uL; Neutrophils % (auto) 53.1 % (37.0-80.0); Nucleated Red Blood Cells % 0.1 %; Platelet Count (auto) 165 10^3/uL (140-450); Red Blood Cells 5.15 10^6/uL (4.5-5.90); Red Cell Distribution Width 15.1 % (11.8-14.3); White Blood Cell 5.5 10^3/uL (4.4-10.8)
[2019-02-14 11:01] LABS: Albumin 3.6 g/dL (3.4-5.0)
[2019-02-14 11:04] LABS: BUN/Creatinine Ratio 11.6; Calcium 8.9 mg/dL (8.5-10.1)
[2019-02-14 11:13] LABS: Free T4 (Free Thyroxine) 0.92 ng/dL (0.89-1.76); Prostate Specific Antigen 1.37 ng/mL (0.0-4.0)
[2019-02-14 11:15] LABS: Bilirubin, Total 0.6 mg/dL (0.2-1.0); CRP High Sensitivity 0.16 mg/dL (< 0.3); Free T3 2.71 pg/mL (2.3-4.2); T3 Total 0.68 ng/mL (0.60-1.81); Total Protein 7.5 g/dL (6.4-8.2)
== END | disposition home or self-care (01) ==
LOC: LAB 09:38
PROVIDERS: ATTEND Internal Medicine
DX: I11.0 Hypertensive heart disease with heart failure (principal); I82.492 Acute embolism and thrombosis of other specified deep vein of left lower extremity; D50.8 Other iron deficiency anemias; Z87.442 Personal history of urinary calculi; K21.9 Gastro-esophageal reflux disease without esophagitis; Z12.5 Encounter for screening for malignant neoplasm of prostate; I48.91 Unspecified atrial fibrillation; I50.22 Chronic systolic (congestive) heart failure; E55.9 Vitamin D deficiency, unspecified; R79.89 Other specified abnormal findings of blood chemistry
CPT/HCPCS: 36415; 80053; 80061; 82306; 82607; 83036; 84153; 84403; 84439; 84443; 84480; 84481; 85025; 86141

== ENCOUNTER → 2019-03-13 | Outpatient (CLI) | payer MEDICARE ==
[~2019-03-13] MED LIST changes: +APIX5TAB PO; +CARV25TA PO; +FER325T PO; +LISI10TA6 PO; +RANI150C11 PO
[2019-03-13 12:25] LABS: Basophils # (auto) 0.1 uL; Basophils % (auto) 1.1 % (0.0-2.0); Eosinophils # (auto) 0.2 uL; Eosinophils % (auto) 3.1 % (0.0-7.0); Hematocrit 48.3 % (41.0-53.0); Hemoglobin 16.2 g/dL (13.5-17.5); Lymphocytes # (auto) 1.6 uL; Lymphocytes % (auto) 25.4 % (10.0-50.0); Mean Corpuscular Hemoglobin 30.8 pg (28.0-32.0); Mean Corpuscular Hgb Conc. 33.5 g/dL (32.0-36.0); Mean Corpuscular Volume 92.1 fL (80.0-100.0); Monocytes # (auto) 0.6 uL; Monocytes % (auto) 8.7 % (0.0-12.0); Neutrophils % (auto) 61.7 % (37.0-80.0); Platelet Count (auto) 169 10^3/uL (140-450); Red Blood Cells 5.25 10^6/uL (4.5-5.90); Red Cell Distribution Width 14.6 % (11.8-14.3); White Blood Cell 6.4 10^3/uL (4.4-10.8)
[2019-03-13 12:38] LABS: INR 1.03 (0.9-1.15); Partial Thromboplastin Time 30.8 sec (23.64-32.05)
[2019-03-13 13:07] LABS: Calcium 9.3 mg/dL (8.5-10.1)
[2019-03-13 13:13] LABS: Albumin 3.6 g/dL (3.4-5.0); BUN/Creatinine Ratio 13.6; Bilirubin, Total 0.7 mg/dL (0.2-1.0); Total Protein 7.8 g/dL (6.4-8.2)
== END | disposition home or self-care (01) ==
LOC: LAB 12:03
PROVIDERS: ATTEND Internal Medicine
DX: Z01.812 Encounter for preprocedural laboratory examination (principal); R07.9 Chest pain, unspecified
CPT/HCPCS: 36415; 80053; 85025; 85610; 85730

== ENCOUNTER → 2019-03-14 | Outpatient (CLI) | payer MEDICARE ==
[~2019-03-14] MED LIST changes: -CARV6.2551 PO; -HYDR-4833 PO; -METO-6 PO; -RANI-226 PO; -TAM04C PO; -WARF5TAB71 PO; -WARPRX PO
[2019-03-14 09:41] LABS: Basophils # (auto) 0.1 uL; Basophils % (auto) 1.2 % (0.0-2.0); Eosinophils # (auto) 0.2 uL; Eosinophils % (auto) 3.7 % (0.0-7.0); Hematocrit 48.7 % (41.0-53.0); Hemoglobin 16.4 g/dL (13.5-17.5); Lymphocytes # (auto) 2.2 uL; Mean Corpuscular Hgb Conc. 33.6 g/dL (32.0-36.0); Mean Corpuscular Volume 92.2 fL (80.0-100.0); Monocytes # (auto) 0.4 uL; Neutrophils # (auto) 2.5 uL; Neutrophils % (auto) 47.1 % (37.0-80.0); Nucleated Red Blood Cells % 0.1 %; Platelet Count (auto) 169 10^3/uL (140-450); Red Blood Cells 5.28 10^6/uL (4.5-5.90); Red Cell Distribution Width 14.8 % (11.8-14.3); White Blood Cell 5.4 10^3/uL (4.4-10.8)
[2019-03-14 10:11] LABS: Albumin 3.7 g/dL (3.4-5.0); Potassium 4.5 mmol/L (3.5-5.1)
[2019-03-14 10:15] LABS: Bilirubin, Total 0.7 mg/dL (0.2-1.0); Total Protein 7.8 g/dL (6.4-8.2)
== END | disposition home or self-care (01) ==
LOC: LAB 09:21
PROVIDERS: ATTEND Family Medicine
DX: I48.91 Unspecified atrial fibrillation (principal); I82.492 Acute embolism and thrombosis of other specified deep vein of left lower extremity; N40.0 Benign prostatic hyperplasia without lower urinary tract symptoms; I42.0 Dilated cardiomyopathy; I26.99 Other pulmonary embolism without acute cor pulmonale; D50.8 Other iron deficiency anemias; K21.9 Gastro-esophageal reflux disease without esophagitis; I12.9 Hypertensive chronic kidney disease with stage 1 through stage 4 chronic kidney disease, or unspecified chronic kidney disease; E11.22 Type 2 diabetes mellitus with diabetic chronic kidney disease; N18.3 Chronic kidney disease, stage 3 (moderate); E55.9 Vitamin D deficiency, unspecified; F41.9 Anxiety disorder, unspecified; E07.9 Disorder of thyroid, unspecified; E16.2 Hypoglycemia, unspecified; E03.9 Hypothyroidism, unspecified
CPT/HCPCS: 36415; 80053; 80061; 82306; 82607; 83036; 84443; 85025

== ENCOUNTER 2019-03-15 08:59 | Day surgery (SDC) | payer MEDICARE ==
[~2019-03-15] VITALS: Ht 167.6 cm; Wt 77.1 kg
[2019-03-15] MEDS ORDERED: MIDAZOLAM HCL 1MG/1ML-2 ML VIAL ONE ×2 (10:17→10:52)
[2019-03-15] MEDS ORDERED: SODIUM CHL 0.9% 0 ML ONE (10:17)
[2019-03-15] MEDS ORDERED: ANGIOMAX 250 MG VIAL IV ONE (10:17)
[2019-03-15] MEDS ORDERED: fentaNYL CITRATE 100 MCG/2 ML VL ONE (10:17)
[2019-03-15] MEDS ORDERED: IOHEXOL 350 MG/ML 100ML IJ ONE ×2 (10:29→10:38)
[2019-03-15] MEDS ORDERED: LIDOCAINE 2%HCL (LOCAL ANESTH.) INJ 20ML MDV ONE (10:33)
== END 2019-03-15 13:15 | disposition home or self-care (01) ==
LOC: CATH 08:59
PROVIDERS: ATTEND Internal Medicine
DX: R94.39 Abnormal result of other cardiovascular function study (principal); I11.9 Hypertensive heart disease without heart failure; I43 Cardiomyopathy in diseases classified elsewhere; J43.9 Emphysema, unspecified; I48.91 Unspecified atrial fibrillation; Z79.899 Other long term (current) drug therapy; Z86.718 Personal history of other venous thrombosis and embolism; Z98.890 Other specified postprocedural states
CPT/HCPCS: 93458; C1760; C1894; J1644; J2250; J3010; Q9967; 99152; 99153

== ENCOUNTER → 2019-05-18 | Outpatient (CLI) | payer MEDICARE ==
[~2019-05-18] MED LIST changes: +CYANOCOBALAMIN (B-12) 1000 MCG/1 ML VIAL IM ONE; +CYANOCOBALAMIN (B-12) 1000 MCG/1 ML VIAL ONE; +TESTOSTERONE CYPIONATE 200 MG/ML 1ML VIAL IM ONE
--- NOTE | 2019-05-18 10:20 | NUR ---
PT. TO CHF CLINIC WITH SON FOR INDUCTION TO CHF CLINIC AND INTRODUCTION TO STAFF. PT. IS TO HAVE AND AICD IMPLANTATION PENDING DUE TO REDUCED EF. SEE COPIES OF RECENT ECHO AND LHC. PT. ALSO WITH HX OF A-FIB WITH MED REC DONE WITH PT. AND SON. PT. STATES HE HAS HAD A-FIB FOR SEVERAL YEARS AND PREVIOUSLY ON WARFARIN AND WITH HX OF DVT LLE. PT. APPEARS IN NO ACUTE DISTRESS, AOX3. ORDERS RECEIVED AND CARRIED OUT. SEE NSG. ASSESS
--- NOTE | 2019-05-18 11:00 | NUR ---
LABS DRAWN AND SENT PER MD ORDER. MED REC REVIEWED SHOWING PT. ON MAXIMUM DOSAGE OF COREG 25 MG BID, ON FADI INHIBITOR, WITH BOTH DRUGS FOR SEVERAL YEARS. PT. STATES HE WAS PRESCRIBED ENTRESTO BUT DEVELOPED SEVERE HEMATURIA, AND WAS DISCONTINUED ON MED. THIS RN WILL INVESTIGATE FURTHER TO SIDE EFFECTS PT. HAD, SINCE HE IS ON ELIQUIS 5 MG BID ALSO FOR A-FIB.
--- NOTE | 2019-05-18 11:30 | NUR ---
MEDS: PT. MEDICATED WITH VIT. B12 1000MCG IM LFT DELT, AND TESTOSTERONE 200MG IM LFT UPPER GLUT, PER MD ORDER.
--- NOTE | 2019-05-18 11:45 | NUR ---
BASELINE CARDIODYNAMICS DONE WITH HIGH SYSTOLIC TIME RATIO NOTED. A-FIB WITH CONTROLLED VENT. RESPONSE 74-90, WITH NO ECTOPY. RESULTS DISCUSSED WITH PT. AND SON.
--- NOTE | 2019-05-18 12:00 | NUR ---
BASELINE 6MWT DONE WITH RESULTS REVIEWED WITH PT. AND SON. PT. DID 240 METERS ON WALK, DID NOT STOP, BUT C/O SLIGHT CHEST PRESSURE AT END OF TEST, THAT RESOLVED AFTER SITTING. PT. STATED NO SOBAT BEGINNING, WITH 3/10 AT COMPLETION, SATS. DOWN TO 93% FROM 97% PRE AND POST., AND SYSTOLIC BP DROPPED 20 MMHG DOWN TO 106/85 AT COMPLETION.
[2019-05-18 12:20] VITALS: BP 116/79
--- NOTE | 2019-05-18 12:20 | NUR ---
Discharge Instructions See e-MAR for any mediations given with this visit. Patient education given on disease process. Patient verbalized understanding. Previous labs reviewed. Patient discharged in stable condition with after care instructions and follow up appointment. PT. INSTRUCTED TO TAKE [address] UN[address] OF [address] D PER DR. BAIN AFTER LAB REVIEW OF LAB. THIS RN WILL FOLLOW UP WITH PT. ON WEDNESDAY FOR LAB RESULTS AND STATUS OF AICD IMPLANTATION. DC'D STABLE WITH COPIES OF LABS.
[2019-05-18 16:03] LABS: Calcium 8.9 mg/dL (8.5-10.1); Magnesium 2.3 mg/dL (1.6-2.6); Potassium 4.3 mmol/L (3.5-5.1)
[2019-05-18 16:06] LABS: BUN/Creatinine Ratio 10.4
== END | disposition home or self-care (01) ==
LOC: CHF HDHVI 09:51
PROVIDERS: ATTEND Internal Medicine Cardiovascular Disease
DX: I11.0 Hypertensive heart disease with heart failure (principal); I50.9 Heart failure, unspecified; E83.40 Disorders of magnesium metabolism, unspecified; I48.91 Unspecified atrial fibrillation; I25.10 Atherosclerotic heart disease of native coronary artery without angina pectoris; D64.9 Anemia, unspecified; Z86.718 Personal history of other venous thrombosis and embolism; Z87.891 Personal history of nicotine dependence; Z88.8 Allergy status to other drugs, medicaments and biological substances; Z87.01 Personal history of pneumonia (recurrent)
CPT/HCPCS: 36415; 80048; 80162; 83735; 83880; 93701; 94618; 96372; G0463; J1071; J3420

== ENCOUNTER → 2019-06-21 | Outpatient (CLI) | payer MEDICARE ==
[~2019-06-21] MED LIST changes: -CYANOCOBALAMIN (B-12) 1000 MCG/1 ML VIAL IM ONE; -CYANOCOBALAMIN (B-12) 1000 MCG/1 ML VIAL ONE; -TESTOSTERONE CYPIONATE 200 MG/ML 1ML VIAL IM ONE
[2019-06-21 11:49] VITALS: BP 140/78
--- NOTE | 2019-06-21 11:49 | NUR ---
CHF CLINIC Discharge Instructions See e-MAR for any mediations given with this visit. Patient education given on disease process. Patient verbalized understanding. Previous labs reviewed. Patient discharged in stable condition with after care instructions and follow up appointment. NOTE BASELINE EKG COMPLETED CARDIODYNAMICS PERFORMED BY JENINFER LANZA AND REVIEWED WITH PATIENT BY TOSHIA LEDEZMA. ECHO SCHEDULED FOR 07/14/19 AND F/U WITH [facility] ON 08/02/19.
== END | disposition home or self-care (01) ==
LOC: CHF HDHVI 11:02
PROVIDERS: ATTEND Internal Medicine Cardiovascular Disease
DX: I50.9 Heart failure, unspecified (principal); I25.10 Atherosclerotic heart disease of native coronary artery without angina pectoris; I48.91 Unspecified atrial fibrillation
CPT/HCPCS: 93005; 93701; G0463

== ENCOUNTER → 2019-07-14 | Outpatient (CLI) | payer MEDICARE | END | disposition home or self-care (01) | LOC: Rad HDHVI 09:55 | PROVIDERS: ATTEND Internal Medicine Cardiovascular Disease | DX: I08.3 Combined rheumatic disorders of mitral, aortic and tricuspid valves (principal); I42.0 Dilated cardiomyopathy; I50.43 Acute on chronic combined systolic (congestive) and diastolic (congestive) heart failure; R06.02 Shortness of breath | CPT/HCPCS: 93306 ==

== ENCOUNTER → 2019-09-12 | Outpatient (CLI) | payer MEDICARE ==
[~2019-09-12] MED LIST changes: +FOLI1TAB6 PO; +OMEP-335 PO
[2019-09-12 09:15] VITALS: BP 149/79
--- NOTE | 2019-09-12 09:15 | NUR ---
CHF PT ARRIVED TO THE CHF CLINIC FOR PRE OP LAB, CXR, EKG FOR AICD, A/O X4, VSS
[2019-09-12 09:40] VITALS: BP 137/89
--- NOTE | 2019-09-12 09:40 | NUR ---
Pre-Op Discharge Summary: See e-MAR for any medications given for this visit. Pre-op orders received and carried out per MD of EKG, LABS and chest xrays. Patient given a copy of EKG with instructions to go to [facility] out patient for further follow up care. NOTE EKG DONE BY JIHAN LANZA REVIEWED BY ARELI LEDEZMA
[2019-09-12 11:55] LABS: Basophils # (auto) 0 10 ^3/uL (0-0.2); Basophils % (auto) 0.9 % (0.0-2.0); Eosinophils # (auto) 0.2 10 ^3/uL (0-0.8); Eosinophils % (auto) 3.2 % (0.0-7.0); Hematocrit 43.1 % (41.0-53.0); Hemoglobin 14.7 g/dL (13.5-17.5); Lymphocytes # (auto) 1.9 10 ^3/uL (0.4-5.4); Lymphocytes % (auto) 35.1 % (10.0-50.0); Mean Corpuscular Hemoglobin 31.9 pg (28.0-32.0); Mean Corpuscular Hgb Conc. 34.1 g/dL (32.0-36.0); Mean Corpuscular Volume 93.7 fL (80.0-100.0); Monocytes # (auto) 0.5 10 ^3/uL (0-1.3); Monocytes % (auto) 8.5 % (0.0-12.0); Neutrophils # (auto) 2.8 10 ^3/uL (1.6-8.6); Neutrophils % (auto) 52.3 % (37.0-80.0); Nucleated Red Blood Cells % 0.1 %; Platelet Count (auto) 179 10^3/uL (140-450); Red Cell Distribution Width 14.5 % (11.8-14.3); White Blood Cell 5.4 10^3/uL (4.4-10.8)
[2019-09-12 12:07] LABS: Potassium 4.2 mmol/L (3.5-5.1)
[2019-09-12 12:11] LABS: Partial Thromboplastin Time 26.8 sec (23.64-32.05)
[2019-09-12 12:16] LABS: BUN/Creatinine Ratio 9.1
== END | disposition home or self-care (01) ==
LOC: Rad HDHVI 08:51
PROVIDERS: ATTEND Internal Medicine Cardiovascular Disease
DX: Z01.812 Encounter for preprocedural laboratory examination (principal); R06.02 Shortness of breath; S22.009A Unspecified fracture of unspecified thoracic vertebra, initial encounter for closed fracture; I35.8 Other nonrheumatic aortic valve disorders; M40.294 Other kyphosis, thoracic region; J98.4 Other disorders of lung; X58.XXXA Exposure to other specified factors, initial encounter; Y93.89 Activity, other specified; Y92.89 Other specified places as the place of occurrence of the external cause; Y99.8 Other external cause status
CPT/HCPCS: 36415; 71046; 80048; 85025; 85610; 85730; 93005; G0463

== ENCOUNTER 2019-09-14 08:34 | Inpatient (IN) | payer MEDICARE ==
[~2019-09-14] VITALS: Ht 167.6 cm; Wt 84.5 kg
[~2019-09-14 08:34] MED LIST changes: -RANI150C11 PO
[2019-09-14] MEDS ORDERED: LIDOCAINE 2%HCL (LOCAL ANESTH.) INJ 20ML MDV ONE (11:09)
[2019-09-14] MEDS ORDERED: MIDAZOLAM HCL 1MG/1ML-2 ML VIAL ONE (11:15)
[2019-09-14] MEDS ORDERED: VANCOMYCIN HCL 1000 MG VL ONE (11:15)
[2019-09-14] MEDS ORDERED: VANCOMYCIN 1GM/250ML 250 ML IV ONE (11:15)
[2019-09-14] MEDS ORDERED: fentaNYL CITRATE 100 MCG/2 ML VL ONE (11:15)
[2019-09-14] MEDS ORDERED: ceFAZolin 1GM/50ML 50 ML IV ONE (11:15)
[2019-09-14] MEDS ORDERED: HYDROcodone-ACET 5/325MG TAB PO PRN (13:15)
[2019-09-14] MEDS ORDERED: NITROGLYCERIN 0.4 MG SL TAB SL PRN (13:15)
[2019-09-14] MEDS ORDERED: ACETAMINOPHEN 325 MG TAB PO PRN (13:15)
[2019-09-14] MEDS ORDERED: MORPHINE SULF INJ 2 MG/ML SYRINGE 1ML IV PRN (13:15)
--- NOTE | 2019-09-14 14:40 | NUR ---
Assumed care of patient Patient to room 214B following pacemaker insertion procedure. Vital signs taken, surgical site assessed for redness, swelling, or bleeding. Dressing to the left upper chest is clean, dry and intact. Left arm is in a sling per MD order. Ice pack applied to incision site per MD order. Patient instructed on need to inform staff immediately for any pain, swelling, bleeding or pulling or popping sensations at surgical site. Patient verbalized understanding. Instructed patient on POC, fall precautions and to call for assistance as needed. Patient verbalized understanding. Fall precautions in place with call light within reach.
[2019-09-14 14:50] VITALS: BP 135/76
[2019-09-14] MEDS ORDERED: InsuLIN REG 1unit/0.01ml Soln (100units/ml) ONE (15:03)
[2019-09-14 15:12] VITALS: BP 133/76
[2019-09-14 17:00] VITALS: BP 131/81
--- NOTE | 2019-09-14 17:38 | NUR ---
Patient reports pain - refused PRN pain medication Patient reports a "nagging" pain in the left upper chest. PRN pain medication offered to patient. Patient refused. Patient stated "No, I'm okay." Patient reports pain is tolerable. Dressing to the left upper chest is clean, dry and intact. No bleeding or swelling noted. Ice pack applied per MD order. Respirations even and unlabored on room air, no distress noted. Call light within reach.
--- NOTE | 2019-09-14 18:45 | NUR ---
Patient ambulated to restroom - elevated HR Notified by telemonitor tech - patient's HR in the 130's BPM A-fib. This RN was at bedside. Patient ambulated to restroom and returned to bed with no complications. Respirations even and unlabored on room air, no distress noted. Call light within reach.
[2019-09-14] MEDS: ceFAZolin 1GM/50ML 50 ML IV SCH (18:46)
--- NOTE | 2019-09-14 18:47 | NUR ---
Closing note Patient sitting in chair at bedside. Respirations even and unlabored on room air, no distress noted. Dressing to the left upper chest is clean, dry and intact with no swelling or bleeding noted. Left arm in sling per MD order. Patient reports mild pain in the left shoulder/left upper chest area rated 3/10. Patient refused pain medication. Instructed patient to notify staff pain medication is needed. Patient verbalized understanding. Ice pack removed while patient sitting in chair. Instructed patient to apply ice pack to left chest once returning to bed. Patient verbalized understanding. Call light within reach.
--- NOTE | 2019-09-14 19:22 | NUR ---
Care endorsed to [facility], chain mender.
[2019-09-14 22:00] VITALS: BP 151/87
[2019-09-14] MEDS: CARVEDILOL 12.5 MG TAB PO SCH (22:19)
[2019-09-14] MEDS: FERROUS SULFATE 325 MG TAB PO SCH (22:19)
[2019-09-15] MEDS: ceFAZolin 1GM/50ML 50 ML IV SCH (03:00)
[2019-09-15 05:42] VITALS: BP 140/77
[2019-09-15 08:10] VITALS: BP 150/90
[2019-09-15 09:00] VITALS: BP 150/90
[2019-09-15] MEDS: FERROUS SULFATE 325 MG TAB PO SCH (09:46)
[2019-09-15] MEDS: CARVEDILOL 12.5 MG TAB PO SCH (09:47)
[2019-09-15] MEDS ORDERED: DIGOXIN 0.125 MG TAB PO SCH (10:00)
[2019-09-15] MEDS ORDERED: LISINOPRIL 10 MG TAB PO SCH (10:00)
[2019-09-15] MEDS ORDERED: FOLIC ACID 1 MG TAB PO SCH (10:00)
[2019-09-15] MEDS ORDERED: PANTOPRAZOLE 40 MG TAB PO SCH (10:00)
[2019-09-15 13:00] VITALS: BP 128/79
[2019-09-15 15:59] VITALS: BP 128/79
[2019-09-15 17:00] VITALS: BP 155/82
--- NOTE | 2019-09-15 18:20 | NUR ---
Opening Shift Note Assumed care of patient, awake and alert. No S/S of distress/SOB or pain reported at this time. Instructed on POC and to call for assist PRN, Left upper chest dressing CDI, will continue to monitor for changes Q1hr and PRN. Addendum: 09/15/19 at 1831 by Nilda Ashby RN wrong time true time 0715
--- NOTE | 2019-09-15 18:31 | NUR ---
DISCHARGE Discharge instructions given as ordered. Encourage to follow up with PMD as instructed. Appointment made to follow up with Dr Mckeon and Dr De La Rosa. All questions and concerns addressed. Patient verbalized understanding. Medication reconciliation form completed and copy given to patient. IV removed with catheter intact, pressure dressing applied. Telemetry unit returned to ICU. Patient taken to vehicle via wheelchair with all personal belongings, accompanied by staff and family member. No distress noted at time of departure.
== END 2019-09-15 18:31 | disposition home or self-care (01) | DRG 227 ==
LOC: CATH 08:34 → TELE-CENTR 14:53
PROVIDERS: ADMIT Internal Medicine Cardiovascular Disease; ATTEND Internal Medicine Cardiovascular Disease
PROC: 0JH608Z Insertion of Defibrillator Generator into Chest Subcutaneous Tissue and Fascia, Open Approach (ICD-10-PCS; principal; 2019-09-14)
PROC: 02HK3KZ Insertion of Defibrillator Lead into Right Ventricle, Percutaneous Approach (ICD-10-PCS; 2019-09-14)
PROC: 02H63KZ Insertion of Defibrillator Lead into Right Atrium, Percutaneous Approach (ICD-10-PCS; 2019-09-14)
DX: I50.23 Acute on chronic systolic (congestive) heart failure (principal); D68.59 Other primary thrombophilia; I25.5 Ischemic cardiomyopathy; I48.91 Unspecified atrial fibrillation; Z86.79 Personal history of other diseases of the circulatory system
CPT/HCPCS: 33249; 36415; 71045; 71046; 80048; 85025; 85610; 85730; 93005; 99152; 99153; G0378; G0463; J0690; J1815; J2250

== ENCOUNTER → 2019-11-09 | Outpatient (CLI) | payer MEDICARE ==
[~2019-11-09] MED LIST changes: +LISI-648 PO; -LISI10TA6 PO
== END | disposition home or self-care (01) ==
LOC: Rad HDHVI 13:58
PROVIDERS: ATTEND Internal Medicine Cardiovascular Disease
DX: I08.3 Combined rheumatic disorders of mitral, aortic and tricuspid valves (principal); R06.02 Shortness of breath; I42.0 Dilated cardiomyopathy; I50.43 Acute on chronic combined systolic (congestive) and diastolic (congestive) heart failure
CPT/HCPCS: 93306

== ENCOUNTER → 2020-10-07 | Outpatient (CLI) | payer MEDICARE ==
[~2020-10-07] MED LIST changes: -DIGO0.1238 PO; +DIGO1TAB48 PO
== END | disposition home or self-care (01) ==
LOC: Rad HDHVI 09:01
PROVIDERS: ATTEND Internal Medicine Cardiovascular Disease
DX: I08.3 Combined rheumatic disorders of mitral, aortic and tricuspid valves (principal); I50.43 Acute on chronic combined systolic (congestive) and diastolic (congestive) heart failure
CPT/HCPCS: 93306

== ENCOUNTER → 2021-01-07 | Outpatient (CLI) | payer MEDICARE ==
[~2021-01-07] MED LIST changes: -LISI-648 PO; +LISI-716 PO
[2021-01-07 12:22] LABS: Basophils # (auto) 0.1 10 ^3/uL (0-0.2); Basophils % (auto) 1.2 % (0.0-2.0); Eosinophils # (auto) 0.2 10 ^3/uL (0-0.8); Eosinophils % (auto) 2.4 % (0.0-7.0); Hematocrit 47.2 % (41.0-53.0); Hemoglobin 16.4 g/dL (13.5-17.5); Lymphocytes # (auto) 2.3 10 ^3/uL (0.4-5.4); Lymphocytes % (auto) 29.6 % (10.0-50.0); Mean Corpuscular Hemoglobin 32.4 pg (28.0-32.0); Mean Corpuscular Hgb Conc. 34.7 g/dL (32.0-36.0); Mean Corpuscular Volume 93.3 fL (80.0-100.0); Monocytes # (auto) 0.6 10 ^3/uL (0-1.3); Monocytes % (auto) 8.2 % (0.0-12.0); Neutrophils # (auto) 4.5 10 ^3/uL (1.6-8.6); Neutrophils % (auto) 58.6 % (37.0-80.0); Nucleated Red Blood Cells % 0.2 %; Platelet Count (auto) 214 10^3/uL (140-450); Red Blood Cells 5.06 10^6/uL (4.5-5.90); Red Cell Distribution Width 14.2 % (11.8-14.3); White Blood Cell 7.7 10^3/uL (4.4-10.8)
[2021-01-07 12:36] LABS: Free T4 (Free Thyroxine) 1.03 ng/dL (0.89-1.76); Prostate Specific Antigen 1.18 ng/mL (0.0-4.0)
[2021-01-07 12:59] LABS: Potassium 4.8 mmol/L (3.5-5.1)
[2021-01-07 13:10] LABS: Albumin 3.8 g/dL (3.4-5.0); Bilirubin, Total 0.8 mg/dL (0.2-1.0); Calcium 9.4 mg/dL (8.5-10.1); Total Protein 8.1 g/dL (6.4-8.2)
== END | disposition home or self-care (01) ==
LOC: LAB 08:21
PROVIDERS: ATTEND Internal Medicine Cardiovascular Disease
DX: C61 Malignant neoplasm of prostate (principal); D51.3 Other dietary vitamin B12 deficiency anemia; I10 Essential (primary) hypertension; E11.9 Type 2 diabetes mellitus without complications; E55.9 Vitamin D deficiency, unspecified; D64.9 Anemia, unspecified; R00.2 Palpitations; R53.1 Weakness; R30.0 Dysuria
CPT/HCPCS: 36415; 80053; 80061; 82306; 82607; 83036; 84153; 84403; 84439; 84443; 85025; 85049

== ENCOUNTER → 2021-09-19 | Outpatient (CLI) | payer MEDICARE | END | disposition home or self-care (01) | LOC: LAB 09:36 | PROVIDERS: ATTEND Internal Medicine Cardiovascular Disease | DX: C61 Malignant neoplasm of prostate (principal); E29.1 Testicular hypofunction; E55.9 Vitamin D deficiency, unspecified | CPT/HCPCS: 36415; 82306; 84153; 84403 ==

== ENCOUNTER → 2022-02-23 | Outpatient (CLI) | payer MEDICARE ==
[2022-02-23 17:14] LABS: Albumin 3.5 g/dL (3.4-5.0); Potassium 3.7 mmol/L (3.5-5.1)
[2022-02-23 17:18] LABS: Free T4 (Free Thyroxine) 1.4 ng/dL (0.89-1.76); Prostate Specific Antigen 1.58 ng/mL (0.0-4.0)
[2022-02-23 17:19] LABS: BUN/Creatinine Ratio 9.7; Bilirubin, Total 0.7 mg/dL (0.2-1.0); Total Protein 7.7 g/dL (6.4-8.2)
[2022-02-23 17:22] LABS: Basophils # (auto) 0 10 ^3/uL (0-0.2); Basophils % (auto) 0.6 % (0.0-2.0); Eosinophils # (auto) 0.3 10 ^3/uL (0-0.8); Eosinophils % (auto) 4.3 % (0.0-7.0); Hematocrit 46.4 % (41.0-53.0); Hemoglobin 15.1 g/dL (13.5-17.5); Lymphocytes % (auto) 29.1 % (10.0-50.0); Mean Corpuscular Hemoglobin 30.7 pg (28.0-32.0); Mean Corpuscular Hgb Conc. 32.5 g/dL (32.0-36.0); Mean Corpuscular Volume 94.5 fL (80.0-100.0); Monocytes # (auto) 0.6 10 ^3/uL (0-1.3); Monocytes % (auto) 8.4 % (0.0-12.0); Neutrophils % (auto) 57.6 % (37.0-80.0); Nucleated Red Blood Cells % 0.2 %; Red Blood Cells 4.91 10^6/uL (4.5-5.90); White Blood Cell 6.9 10^3/uL (4.4-10.8)
== END | disposition home or self-care (01) ==
LOC: LAB 08:26
PROVIDERS: ATTEND Internal Medicine Cardiovascular Disease
DX: D51.3 Other dietary vitamin B12 deficiency anemia (principal); D64.9 Anemia, unspecified; E11.9 Type 2 diabetes mellitus without complications; I10 Essential (primary) hypertension; R00.2 Palpitations; R53.1 Weakness; R30.0 Dysuria; C61 Malignant neoplasm of prostate; Z79.899 Other long term (current) drug therapy
CPT/HCPCS: 36415; 80053; 80061; 82306; 82607; 83036; 84153; 84403; 84439; 84443; 85025

== ENCOUNTER → 2022-06-08 | Outpatient (CLI) | payer MEDICARE | END | disposition home or self-care (01) | LOC: Rad HDHVI 08:56 | PROVIDERS: ATTEND Internal Medicine Cardiovascular Disease | DX: I08.3 Combined rheumatic disorders of mitral, aortic and tricuspid valves (principal); I10 Essential (primary) hypertension; E78.5 Hyperlipidemia, unspecified | CPT/HCPCS: 93306 ==

== ENCOUNTER 2022-08-11 09:24 | Emergency (ER) | payer MEDICARE ==
[~2022-08-11] VITALS: Ht 167.6 cm; Wt 82.8 kg
[2022-08-11 11:33] LABS: Basophils # (auto) 0 10 ^3/uL (0-0.2); Basophils % (auto) 0.5 % (0.0-2.0); Eosinophils # (auto) 0.2 10 ^3/uL (0-0.8); Eosinophils % (auto) 1.7 % (0.0-7.0); Hematocrit 45.4 % (41.0-53.0); Hemoglobin 15.3 g/dL (13.5-17.5); Lymphocytes # (auto) 1.4 10 ^3/uL (0.4-5.4); Lymphocytes % (auto) 14.9 % (10.0-50.0); Mean Corpuscular Hemoglobin 31.6 pg (28.0-32.0); Mean Corpuscular Hgb Conc. 33.6 g/dL (32.0-36.0); Mean Corpuscular Volume 93.9 fL (80.0-100.0); Monocytes # (auto) 0.7 10 ^3/uL (0-1.3); Neutrophils # (auto) 7.3 10 ^3/uL (1.6-8.6); Neutrophils % (auto) 75.9 % (37.0-80.0); Red Blood Cells 4.83 10^6/uL (4.5-5.90); Red Cell Distribution Width 14.1 % (11.8-14.3); White Blood Cell 9.6 10^3/uL (4.4-10.8)
[2022-08-11 13:13] LABS: Urine Amorphous Crystal FEW /hpf (None Seen); Urine Bacteria NONE SEEN /hpf (None Seen); Urine Blood 1+ /uL (Negative); Urine Mucus FEW (None Seen); Urine Specific Gravity 1.018 (1.001-1.035); Urine WBC 48 /hpf (0 - 3)
[2022-08-11 15:04] LABS: Albumin 3.6 g/dL (3.4-5.0); BUN/Creatinine Ratio 12.5; Calcium 8.7 mg/dL (8.5-10.1); Potassium 4.3 mmol/L (3.5-5.1)
[2022-08-11] MEDS ORDERED: TAM04C PO (15:04)
[2022-08-11] MEDS ORDERED: CIPR500T4 PO (15:04)
[2022-08-11 15:07] LABS: Bilirubin, Total 0.7 mg/dL (0.2-1.0); Total Protein 7.6 g/dL (6.4-8.2)
[2022-08-11 15:42] VITALS: BP 135/79
== END 2022-08-11 16:48 | disposition home or self-care (01) ==
LOC: ER 09:24
DX: N39.0 Urinary tract infection, site not specified (principal); N23 Unspecified renal colic; N20.0 Calculus of kidney; I48.91 Unspecified atrial fibrillation; K21.9 Gastro-esophageal reflux disease without esophagitis; Z88.8 Allergy status to other drugs, medicaments and biological substances; Z79.899 Other long term (current) drug therapy; Z87.442 Personal history of urinary calculi; Z98.890 Other specified postprocedural states
CPT/HCPCS: 36415; 74176; 80053; 81001; 85025

== ENCOUNTER → 2022-11-11 | Outpatient (CLI) | payer MEDICARE ==
[~2022-11-11] VITALS: Ht 167.6 cm; Wt 81.6 kg
[~2022-11-11] MED LIST changes: +ADENOSINE 69 MG in GIVE UN-DILUTED 0 ML IV ONE; +ADENOSINE 90 MG/30 ML INJ IV ONE; +CIPR500T4 PO; +TAM04C PO
== END | disposition home or self-care (01) ==
LOC: Rad HDHVI 13:16
PROVIDERS: ATTEND Internal Medicine Cardiovascular Disease
DX: I11.0 Hypertensive heart disease with heart failure (principal); I50.23 Acute on chronic systolic (congestive) heart failure; I25.10 Atherosclerotic heart disease of native coronary artery without angina pectoris; I25.5 Ischemic cardiomyopathy; I48.91 Unspecified atrial fibrillation; Z95.0 Presence of cardiac pacemaker
CPT/HCPCS: 78452; 93005; 96374; 96375; A9500; J0153

== ENCOUNTER → 2022-11-26 | Outpatient (CLI) | payer MEDICARE ==
[~2022-11-26] MED LIST changes: -ADENOSINE 69 MG in GIVE UN-DILUTED 0 ML IV ONE; -ADENOSINE 90 MG/30 ML INJ IV ONE
[2022-11-26 08:58] LABS: Basophils # (auto) 0.1 10 ^3/uL (0-0.2); Basophils % (auto) 1.1 % (0.0-2.0); Eosinophils # (auto) 0.2 10 ^3/uL (0-0.8); Eosinophils % (auto) 3.6 % (0.0-7.0); Hematocrit 49.1 % (41.0-53.0); Hemoglobin 16.8 g/dL (13.5-17.5); Lymphocytes # (auto) 2.6 10 ^3/uL (0.4-5.4); Mean Corpuscular Hemoglobin 31.8 pg (28.0-32.0); Mean Corpuscular Hgb Conc. 34.2 g/dL (32.0-36.0); Mean Corpuscular Volume 92.8 fL (80.0-100.0); Monocytes # (auto) 0.5 10 ^3/uL (0-1.3); Monocytes % (auto) 7.6 % (0.0-12.0); Neutrophils # (auto) 3.2 10 ^3/uL (1.6-8.6); Neutrophils % (auto) 48.7 % (37.0-80.0); Nucleated Red Blood Cells % 0.2 %; Red Blood Cells 5.29 10^6/uL (4.5-5.90); White Blood Cell 6.6 10^3/uL (4.4-10.8)
[2022-11-26 09:46] LABS: Albumin 3.8 g/dL (3.4-5.0)
[2022-11-26 09:54] LABS: BUN/Creatinine Ratio 9.6 (10.0-20.0); Bilirubin, Direct 0.1 mg/dL (0-0.2); Bilirubin, Total 0.4 mg/dL (0.2-1.0); Calcium 9.2 mg/dL (8.5-10.1); Total Protein 8.4 g/dL (6.4-8.2)
== END | disposition home or self-care (01) ==
LOC: LAB 08:35
PROVIDERS: ATTEND Internal Medicine Cardiovascular Disease
DX: C61 Malignant neoplasm of prostate (principal); D51.3 Other dietary vitamin B12 deficiency anemia; E11.9 Type 2 diabetes mellitus without complications; I10 Essential (primary) hypertension; R00.2 Palpitations; R30.0 Dysuria; E55.9 Vitamin D deficiency, unspecified; D64.9 Anemia, unspecified; R53.1 Weakness
CPT/HCPCS: 36415; 80048; 80061; 80076; 82306; 83036; 84153; 84403; 84443; 85025

== ENCOUNTER 2022-12-15 07:02 | Emergency (ER) | payer MEDICARE ==
[~2022-12-15] VITALS: Ht 167.6 cm; Wt 84.0 kg
[~2022-12-15 07:02] MED LIST changes: +FOLI-119 PO; -FOLI1TAB6 PO; -LISI-716 PO; +LISI10TA34 PO; -TAM04C PO; +TAMS-35 PO
[2022-12-15 07:27] LABS: Basophils # (auto) 0.1 10 ^3/uL (0-0.2); Basophils % (auto) 1.4 % (0.0-2.0); Eosinophils # (auto) 0.3 10 ^3/uL (0-0.8); Eosinophils % (auto) 3.4 % (0.0-7.0); Hematocrit 46.3 % (41.0-53.0); Hemoglobin 15.7 g/dL (13.5-17.5); Lymphocytes # (auto) 2.1 10 ^3/uL (0.4-5.4); Lymphocytes % (auto) 22.7 % (10.0-50.0); Mean Corpuscular Hemoglobin 31.5 pg (28.0-32.0); Mean Corpuscular Volume 92.7 fL (80.0-100.0); Monocytes # (auto) 0.7 10 ^3/uL (0-1.3); Monocytes % (auto) 8.2 % (0.0-12.0); Neutrophils # (auto) 5.9 10 ^3/uL (1.6-8.6); Neutrophils % (auto) 64.3 % (37.0-80.0); Nucleated Red Blood Cells % 0.1 %; Red Cell Distribution Width 14.9 % (11.8-14.3); White Blood Cell 9.2 10^3/uL (4.4-10.8)
[2022-12-15 07:58] LABS: Albumin 3.6 g/dL (3.4-5.0); Calcium 8.3 mg/dL (8.5-10.1); Potassium 4.2 mmol/L (3.5-5.1)
[2022-12-15 08:02] LABS: BUN/Creatinine Ratio 6.5 (10.0-20.0); Bilirubin, Total 0.7 mg/dL (0.2-1.0); Total Protein 7.2 g/dL (6.4-8.2)
[2022-12-15 08:17] LABS: INR 1.06 (0.9-1.15); Partial Thromboplastin Time 31.4 sec (24.6-33.4)
[2022-12-15 13:10] VITALS: BP 132/71
[2022-12-16] MEDS ORDERED: LEVO100T8 PO (16:40)
[2022-12-16] MEDS ORDERED: CHOL50007 PO (16:40)
[2022-12-16] MEDS ORDERED: POM (16:40)
[2022-12-16] MEDS ORDERED: METO-6 PO ×2 (16:40)
== END 2022-12-15 13:10 | disposition home or self-care (01) ==
LOC: ER 07:02
DX: R06.02 Shortness of breath (principal); I48.91 Unspecified atrial fibrillation; K21.9 Gastro-esophageal reflux disease without esophagitis; I10 Essential (primary) hypertension; Z87.440 Personal history of urinary (tract) infections; Z87.442 Personal history of urinary calculi; Z86.711 Personal history of pulmonary embolism; Z95.0 Presence of cardiac pacemaker; Z79.01 Long term (current) use of anticoagulants
CPT/HCPCS: 36415; 71045; 80053; 83880; 84484; 85025; 85610; 85730; 93005

== ENCOUNTER → 2022-12-16 | Outpatient (CLI) | payer MEDICARE ==
[~2022-12-16] MED LIST changes: +CHOL50007 PO; +LEVO100T8 PO; +METO-6 PO; +POM
[2022-12-16 13:58] VITALS: BP 147/55
[2022-12-16 14:05] VITALS: BP 145/77
== END | disposition home or self-care (01) ==
LOC: Rad HDHVI 13:50
PROVIDERS: ATTEND Internal Medicine Cardiovascular Disease
DX: Z01.818 Encounter for other preprocedural examination (principal); R06.02 Shortness of breath
CPT/HCPCS: G0463

== ENCOUNTER 2022-12-17 08:35 | Day surgery (SDC) | payer MEDICARE ==
[~2022-12-17] VITALS: Ht 167.6 cm; Wt 82.6 kg
[2022-12-17] VITALS (8 sets, daily range): BP systolic 140–165; BP diastolic 89–107
[~2022-12-17 08:35] MED LIST changes: -CARV25TA PO; -CIPR500T4 PO; -TAMS-35 PO
[2022-12-17] MEDS ORDERED: ANGIOMAX 250 MG VIAL IV ONE (12:55)
[2022-12-17] MEDS ORDERED: fentaNYL CITRATE 100 MCG/2 ML VL ONE (12:55)
[2022-12-17] MEDS ORDERED: SODIUM CHL 0.9% 0 ML ONE (12:56)
[2022-12-17] MEDS ORDERED: LIDOCAINE 2%HCL (LOCAL ANESTH.) INJ 20ML MDV ONE (12:56)
[2022-12-17] MEDS ORDERED: IODIXANOL 320MG/ML 100ML BTL IV ONE (12:56)
[2022-12-17] MEDS ORDERED: MIDAZOLAM HCL 2MG/2ML 2ml VIAL (1mg/ml) ONE (12:56)
== END 2022-12-17 15:40 | disposition home or self-care (01) ==
LOC: CATH 08:35
PROVIDERS: ATTEND Internal Medicine Cardiovascular Disease
DX: I42.0 Dilated cardiomyopathy (principal); I11.0 Hypertensive heart disease with heart failure; I50.20 Unspecified systolic (congestive) heart failure; Z95.810 Presence of automatic (implantable) cardiac defibrillator
CPT/HCPCS: 93458; C1894; J1644; J2250; J3010; Q9967; 99152

== ENCOUNTER → 2023-07-14 | Outpatient (CLI) | payer MEDICARE | END | disposition home or self-care (01) | LOC: Rad HDHVI 10:49 | PROVIDERS: ATTEND Internal Medicine Cardiovascular Disease | DX: I10 Essential (primary) hypertension (principal) | CPT/HCPCS: 93880 ==

== ENCOUNTER → 2023-11-19 | Outpatient (CLI) | payer MEDICARE ==
[2023-11-19 10:05] LABS: Potassium 4.7 mmol/L (3.5-5.1)
[2023-11-19 10:12] LABS: Magnesium 1.7 mg/dL (1.6-2.6)
== END | disposition home or self-care (01) ==
LOC: LAB 09:16
PROVIDERS: ATTEND Internal Medicine Cardiovascular Disease
DX: I48.91 Unspecified atrial fibrillation (principal); I49.9 Cardiac arrhythmia, unspecified; D64.9 Anemia, unspecified; I10 Essential (primary) hypertension
CPT/HCPCS: 36415; 80162; 83735; 84132

== ENCOUNTER → 2024-08-10 | Outpatient (CLI) | payer OTHER ==
--- NOTE | 2024-08-11 08:41 | DVHSR ---
APPROVED REPORT EXAM: Two-dimensional and M-mode echocardiogram with Doppler and color Doppler. DIMENSIONS LVDd4.9 (3.8-5.7cm)LA (2D)6.9 (1.9-4.0cm)Aortic Root3.1 (2.0-3.7cm) LVDs4.0 (2.5-4.0cm)LA (MM) (1.9-4.0cm)Aortic Cusp Exc1.9 (1.5-2.0cm) EF (%) 38.1 (55-70%)Rt. Atrium4.0 (1.9-4.0cm)Asc. Aorta cm IVSd1.3 (0.7-1.1cm)RV (D)4.5 (1.8-2.4cm) PWd1.2 (0.7-1.1cm) Mitral Valve MitralMitral Stenosis E wave0.79m/sMV Mean GR.mmHg A wave0.32m/sMV Peak GR.91mmHg E/A ratio2.52D MVAcm2 DECEL [id number] 1/2 Timems Aortic Valve Aortic ValveAortic Stenosis V10.64m/Anuel Mean GR.2mmHg V20.91m/Anuel Peak GR.3mmHg AI P 1/2 Tuek048.18ms Pulmonic Valve V20.46m/s Tricuspid Valve TR Velocity2.73m/s [id number] LEFT VENTRICLE The Ejection Fraction is 35-45%. ATRIA The left atrium is mildly dilated. The right atrium size is normal. MITRAL VALVE Mitral annular calcification is mild. Mitral regurgitation is mild to moderate. PULMONIC VALVE The pulmonic valve is not well visualized. TRICUSPID VALVE The tricuspid valve is grossly normal. There is mild tricuspid regurgitation. AORTIC VALVE The aortic valve opens well. There is mild aortic regurgitation. GREAT VESSELS The aortic root is normal size. PERICARDIAL EFFUSION There is no pericardial effusion. Other Information Technically limited study due to body habitus. Conclusion EF 35% MARKED LAE MOD MR MILD TR MILD AI
== END | disposition home or self-care (01) ==
LOC: Rad HDHVI 09:46
PROVIDERS: ATTEND Internal Medicine Cardiovascular Disease
DX: I08.3 Combined rheumatic disorders of mitral, aortic and tricuspid valves (principal); Z95.0 Presence of cardiac pacemaker
CPT/HCPCS: 93306

== ENCOUNTER → 2024-10-18 | Outpatient (CLI) | payer OTHER ==
[2024-10-18 10:41] LABS: Basophils # (auto) 0.1 10 ^3/uL (0-0.2); Eosinophils # (auto) 0.2 10 ^3/uL (0-0.8); Lymphocytes # (auto) 2.3 10 ^3/uL (0.4-5.4); Monocytes # (auto) 0.5 10 ^3/uL (0-1.3); Neutrophils # (auto) 4.2 10 ^3/uL (1.6-8.6); White Blood Cell 7.3 10^3/uL (4.4-10.8)
[2024-10-18 10:44] LABS: Basophils % (auto) 1.1 % (0.0-2.0); Eosinophils % (auto) 2.8 % (0.0-7.0); Hematocrit 54.9 % (41.0-53.0); Hemoglobin 18.2 g/dL (13.5-17.5); Lymphocytes % (auto) 31.7 % (10.0-50.0); Mean Corpuscular Hemoglobin 30.7 pg (28.0-32.0); Mean Corpuscular Hgb Conc. 33.2 g/dL (32.0-36.0); Mean Corpuscular Volume 92.5 fL (80.0-100.0); Monocytes % (auto) 7.5 % (0.0-12.0); Neutrophils % (auto) 56.9 % (37.0-80.0); Nucleated Red Blood Cells % 0.4 %; Platelet Count (auto) 201 10^3/uL (140-450); Red Blood Cells 5.93 10^6/uL (4.5-5.90); Red Cell Distribution Width 14.2 % (11.8-14.3)
[2024-10-18 11:04] LABS: Alanine Aminotransferase 20 U/L (7-40); Alkaline Phosphatase 83 U/L (46-116); Anion Gap 10 (5-15); Aspartate Aminotransferase 22 U/L (13-40); BUN/Creatinine Ratio 8.7 (10.0-20.0); Blood Urea Nitrogen 12 mg/dL (9-23); Carbon Dioxide 29 mmol/L (20-31); Cholesterol 147 mg/dL (< 200); Glucose 97 mg/dL (74-106); HDL Cholesterol 45 mg/dL (40-59); LDL Cholesterol 86 mg/dL (< 100); Potassium 4.4 mmol/L (3.5-5.1); Sodium 136 mmol/L (136-145); Triglycerides 103 mg/dL (< 150)
[2024-10-18 11:05] LABS: Bilirubin, Total 0.7 mg/dL (0.2-1.0)
[2024-10-18 11:06] LABS: Albumin 4.9 g/dL (3.2-4.8); Calcium 10.5 mg/dL (8.7-10.4); Chloride 97 mmol/L (98-107); Total Protein 8.8 g/dL (5.7-8.2)
== END | disposition home or self-care (01) ==
LOC: LAB 09:54
PROVIDERS: ATTEND Nurse Practitioner
DX: I11.0 Hypertensive heart disease with heart failure (principal); I50.9 Heart failure, unspecified; E78.5 Hyperlipidemia, unspecified; R73.9 Hyperglycemia, unspecified; Z79.899 Other long term (current) drug therapy
CPT/HCPCS: 36415; 80053; 80061; 83036; 84153; 84443; 85025

== ENCOUNTER → 2025-02-16 | Outpatient (CLI) | payer OTHER ==
[2025-02-16 09:55] LABS: Alanine Aminotransferase 18 U/L (7-40); Alkaline Phosphatase 62 U/L (46-116); Anion Gap 10 (5-15); BUN/Creatinine Ratio 5.6 (10.0-20.0); Calcium 9.7 mg/dL (8.7-10.4); Carbon Dioxide 27 mmol/L (20-31); Chloride 103 mmol/L (98-107); Glucose 101 mg/dL (74-106); Potassium 4.3 mmol/L (3.5-5.1); Sodium 140 mmol/L (136-145); Total Protein 7.5 g/dL (5.7-8.2)
[2025-02-16 09:56] LABS: Albumin 4.5 g/dL (3.2-4.8); Bilirubin, Total 1.2 mg/dL (0.2-1.0)
[2025-02-16 10:01] LABS: Blood Urea Nitrogen 7 mg/dL (9-23)
== END | disposition home or self-care (01) ==
LOC: LAB 09:04
PROVIDERS: ATTEND Nurse Practitioner
DX: E03.9 Hypothyroidism, unspecified (principal); E78.5 Hyperlipidemia, unspecified
CPT/HCPCS: 36415; 80053; 84443